=== PATIENT | male | born 1985 | race Caucasian/White ===

== ENCOUNTER 2018-02-23 20:14 | Observation (INO) | payer SELFPAY ==
[2018-02-23] MEDS ORDERED: Sodium Chloride 0.9% 1,000 ML IV ONE ×2 (20:26→22:07)
--- NOTE | 2018-02-23 20:29 | EDM.PDOC ---
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 He denies fever chills nausea vomiting or other complaints. Review of systems: As per history of present illness and below otherwise all systems reviewed and negative. Past medical history: As per history of present illness and as reviewed below otherwise noncontributory. Surgical history: As per history of present illness and as reviewed below otherwise noncontributory. Social history: No reported history of drug or alcohol abuse. Family history: As per history of present illness and as reviewed below otherwise noncontributory. Physical exam: HEENT: Atraumatic, normocephalic, pupils reactive, negative for conjunctival pallor or scleral icterus, mucous membranes moist, throat clear, neck supple, nontender, trachea midline. Lungs: Clear to auscultation, breath sounds equal bilaterally, chest nontender. Heart: S1S2, regular, negative for clicks, rubs, or JVD. Abdomen: Soft, nondistended, nontender. Negative for masses or hepatosplenomegaly. Negative for costovertebral tenderness. Pelvis: Stable nontender. Genitourinary: Deferred. Rectal: Deferred. Extremities: Atraumatic, negative for cords or calf pain. Neurovascular unremarkable. Neuro: Awake, alert, oriented. Cranial nerves II through XII unremarkable. Cerebellum unremarkable. Motor and sensory unremarkable throughout. Exam nonfocal. Diagnostics: CBC CMP CPK Therapeutics: Normal saline 1 L bolus Impression: #1 polymyalgia #2 history of rhabdomyolysis Definitive disposition and diagnosis as appropriate pending reevaluation and review of above. ED ROS GENERAL - Review of Systems Review Of Systems: ROS reveals no pertinent complaints other than HPI. ED EXAM, GENERAL - Physical Exam Exam: See Below (See dictation) Departure - Departure Time of Disposition: 20:28 Disposition: Home, Self-Care 01 Condition: Good Clinical Impression: Polymyalgia - Discharge Information Additional Instructions: The following information is given to patients seen in the emergency department who are being discharged to home. This information is to outline your options for follow-up care. We provide all patients seen in our emergency department with a follow-up referral. The need for follow-up, as well as the timing and circumstances, are variable depending upon the specifics of your emergency department visit. If you don't have a primary care physician on staff, we will provide you with a referral. We always advise you to contact your personal physician following an emergency department visit to inform them of the circumstance of the visit and for follow-up with them and/or the need for any referrals to a consulting specialist. The emergency department will also refer you to a specialist when appropriate. This referral assures that you have the opportunity for followup care with a specialist. All of these measure are taken in an effort to provide you with optimal care, which includes your followup. Under all circumstances we always encourage you to contact your private physician who remains a resource for coordinating your care. When calling for followup care, please make the office aware that this follow-up is from your recent emergency room visit. If for any reason you are refused follow-up, please contact the [facility] emergency department at and asked to speak to the emergency department charge nurse. [facility] [address] [place] [id number] Push fluids follow-up primary medical doctor and/or clinic above return as needed as discussed[]
[2018-02-23 21:41] LABS: CHLORIDE,CL 104 mmol/L (98-107); SODIUM,NA 140 mmol/L (136-148)
[2018-02-24] MEDS ORDERED: Sodium Chloride 0.9% 2.5 ML Syringe FLUSH PRN (01:37)
[2018-02-24] MEDS ORDERED: Sodium Chloride 0.9% 10 ML Syringe FLUSH PRN (01:37)
[2018-02-24] MEDS ORDERED: Enoxaparin 40 MG/0.4 ML Syringe SUBCUT SCH (01:45)
[2018-02-24] MEDS: Sodium Chloride 0.9% 1,000 ML IV SCH ×3 (03:03→22:31)
[2018-02-24 06:44] LABS: CHLORIDE,CL 108 mmol/L (98-107); SODIUM,NA 141 mmol/L (136-148)
--- NOTE | 2018-02-24 09:49 | PCM.HP ---
<Henry Upton - Last Filed: 02/24/18 10:13> H&P History of Present Illness - General Date of Service: 02/24/18 Admit Problem/Dx: Admission Diagnosis/Problem Admission Diagnosis/Problem Rhabdomyolysis Source of Information: Patient History Limitations: Reports: No Limitations - History of Present Illness Initial Comments - Free Text/Narative: 32-year-old male is being admitted with rhabdomyolysis. Patient has a history of intermittent rhabdomyolysis and has been seen at [facility] and many other places with no etiology found for the intermittent rise in his CK. Patient states he's hospitalized 3-4 times a year with rhabdomyolysis and given IV fluids and pain medications. He notes that his CK at times will return to normal levels. He states that he is constantly in pain secondary to muscle cramping. He does not take anything at home for pain relief. Apart from the diffuse muscle pain, the patient denies any other acute concerns at this time including headache, dizziness, chest pain, palpitations, shortness of breath, wheezing, cough, abdominal pain, nausea, vomiting, constipation, diarrhea, peripheral edema, dysuria, hematuria, fever. ER course: Initial CK was 2711. All other laboratory testing was unremarkable. Patient was given an IV fluid bolus 2 in the ER. generalized Pain Score (Numeric/FACES): 5 - Related Data Allergies/Adverse Reactions: Allergies Allergy/AdvReac Type Severity Reaction Status Date / Time cefaclor [From Ceclor] Allergy Hives Verified 02/23/18 20:30 Home Medications: Home Meds . [No Known Home Meds] 02/23/18 [History] Past Medical History HEENT History: Reports: None Cardiovascular History: Reports: None Respiratory History: Reports: None Gastrointestinal History: Reports: None Genitourinary History: Reports: None Musculoskeletal History: Reports: Other (See Below) Other Musculoskeletal History: muscle myopathy Neurological History: Reports: None Psychiatric History: Reports: None Endocrine/Metabolic History: Reports: None Hematologic History: Reports: None Immunologic History: Reports: None Oncologic (Cancer) History: Reports: None Dermatologic History: Reports: None - Infectious Disease History Infectious Disease History: Reports: None - Past Surgical History Head Surgeries/Procedures: Reports: None HEENT Surgical History: Reports: Oral Surgery Social & Family History - Family History Family Medical History: Noncontributory - Tobacco Use Smoking Status *Q: Current Every Day Smoker Years of Tobacco use: 13 Packs/Tins Daily: 1 Used Tobacco, but Quit: Yes Month/Year Tobacco Last Used: February 2018 - Caffeine Use Caffeine Use: Reports: Coffee, Soda - Alcohol Use Date of Last Drink: 02/24/18 Time of Last Drink: 15:00 - Recreational Drug Use Recreational Drug Use: No H&P Review of Systems - Review of Systems: Review Of Systems: See Below General: Reports: No Symptoms HEENT: Reports: No Symptoms Pulmonary: Reports: No Symptoms Cardiovascular: Reports: No Symptoms Gastrointestinal: Reports: No Symptoms Genitourinary: Reports: No Symptoms Musculoskeletal: Reports: Muscle Pain Skin: Reports: No Symptoms Psychiatric: Reports: No Symptoms Neurological: Reports: No Symptoms Hematologic/Lymphatic: Reports: No Symptoms Immunologic: Reports: No Symptoms Exam - Exam Exam: See Below - Vital Signs Vital Signs: Last Vital Signs Temp 98.2 F 02/24/18 07:20 Pulse 81 02/24/18 07:20 Resp 18 02/24/18 07:20 BP 90/68 02/24/18 07:20 Pulse Ox 99 02/24/18 07:20 Weight: 212 lb 8 oz - Exam General: Alert, Oriented, Cooperative HEENT: Conjunctiva Clear, Hearing Intact Neck: Supple, Trachea Midline, 2 Lungs: Clear to Auscultation, Normal Respiratory Effort Cardiovascular: Regular Rate, Regular Rhythm GI/Abdominal Exam: Normal Bowel Sounds, Soft, Non-Tender, No Organomegaly, No Distention, No Abnormal Bruit, No Mass, Pelvis Stable Extremities: Normal Inspection, Normal Range of Motion, Non-Tender, No Pedal Edema, Normal Capillary Refill Peripheral Pulses: 2+: Radial (L), Radial (R), Posterior Tibial (L), Posterior Tibial (R) Skin: Warm, Dry, Intact Neuro Extensive - Mental Status: Alert, Oriented x3, Normal Mood/Affect, Normal Cognition Psychiatric: Alert, Normal Affect, Normal Mood - Patient Data Lab Results Last 24 hrs: Laboratory Results - last 24 hr 02/23/18 02/23/18 02/23/18 Range/Units 20:40 20:53 20:53 WBC 9.83 (4.0-11.0) K/uL RBC 5.04 (4.50-5.90) M/uL Hgb 16.3 (13.0-17.0) g/dL Hct 44.2 (38.0-50.0) % MCV 87.7 (80.0-98.0) fL MCH 32.3 H (27.0-32.0) pg MCHC 36.9 (31.0-37.0) g/dL RDW Std Deviation 41.7 (28.0-62.0) fl RDW Coeff of Anil 13 (11.0-15.0) % Plt Count 346 (150-400) K/uL MPV 9.60 (7.40-12.00) fL Neut % (Auto) 58.2 (48.0-80.0) % Lymph % (Auto) 30.4 (16.0-40.0) % [place] % (Auto) 9.1 (0.0-15.0) % Eos % (Auto) 1.7 (0.0-7.0) % Baso % (Auto) 0.6 (0.0-1.5) % Neut # (Auto) 5.7 (1.4-5.7) K/uL Lymph # (Auto) 3.0 H (0.6-2.4) K/uL [place] # (Auto) 0.9 H (0.0-0.8) K/uL Eos # (Auto) 0.2 (0.0-0.7) K/uL Baso # (Auto) 0.1 (0.0-0.1) K/uL Nucleated RBC % 0.0 /100WBC Nucleated RBCs # 0 K/uL Sodium 140 (136-148) mmol/L Potassium 3.9 (3.5-5.1) mmol/L Chloride 104 (98-107) mmol/L Carbon Dioxide 22.4 (21.0-32.0) mmol/L BUN 10 (7.0-18.0) mg/dL Creatinine 1.1 (0.8-1.3) mg/dL Est Cr Clr Drug Dosing 112.09 mL/min Estimated GFR (MDRD) > 60.0 ml/min Glucose 108 H (74-106) mg/dL Calcium 9.5 (8.5-10.1) mg/dL Phosphorus (2.6-4.7) mg/dL Magnesium (1.5-2.0) mg/dL Total Bilirubin 0.3 (0.2-1.0) mg/dL AST 68 H (15-37) IU/L ALT 56 (14-63) IU/L Alkaline Phosphatase 84 (46-116) U/L Creatine Kinase 2711 H (26-308) U/L Total Protein 8.0 (6.4-8.2) g/dL Albumin 4.3 (3.4-5.0) g/dL Globulin 3.7 H (2.0-3.5) g/dL Albumin/Globulin Ratio 1.2 L (1.3-2.8) Urine Color YELLOW Urine Appearance CLEAR Urine pH 5.0 (5.0-8.0) Ur Specific [place] <= 1.005 (1.001-1.035) Urine Protein NEGATIVE (NEGATIVE) mg/dL Urine Glucose (UA) NEGATIVE (NEGATIVE) mg/dL Urine Ketones NEGATIVE (NEGATIVE) mg/dL Urine Occult Blood NEGATIVE (NEGATIVE) Urine Nitrite NEGATIVE (NEGATIVE) Urine Bilirubin NEGATIVE (NEGATIVE) Urine Urobilinogen 0.2 (<2.0) EU/dL Ur Leukocyte Esterase NEGATIVE (NEGATIVE) Urine RBC 0-1 (0-2/HPF) Urine WBC 0-1 (0-5/HPF) Ur Epithelial Cells RARE (NONE-FEW) Urine Bacteria RARE (NEGATIVE) 02/23/18 02/24/18 02/24/18 Range/Units 20:53 05:05 05:05 WBC 6.60 (4.0-11.0) K/uL RBC 4.52 (4.50-5.90) M/uL Hgb 14.3 (13.0-17.0) g/dL Hct 40.0 (38.0-50.0) % MCV 88.5 (80.0-98.0) fL MCH 31.6 (27.0-32.0) pg MCHC 35.8 (31.0-37.0) g/dL RDW Std Deviation 41.8 (28.0-62.0) fl RDW Coeff of Anil 13 (11.0-15.0) % Plt Count 290 (150-400) K/uL MPV 9.80 (7.40-12.00) fL Neut % (Auto) 45.3 L (48.0-80.0) % Lymph % (Auto) 41.1 H (16.0-40.0) % [place] % (Auto) 9.7 (0.0-15.0) % Eos % (Auto) 3.3 (0.0-7.0) % Baso % (Auto) 0.6 (0.0-1.5) % Neut # (Auto) 3.0 (1.4-5.7) K/uL Lymph # (Auto) 2.7 H (0.6-2.4) K/uL [place] # (Auto) 0.6 (0.0-0.8) K/uL Eos # (Auto) 0.2 (0.0-0.7) K/uL Baso # (Auto) 0.0 (0.0-0.1) K/uL Nucleated RBC % 0.0 /100WBC Nucleated RBCs # 0 K/uL Sodium 141 (136-148) mmol/L Potassium 4.1 (3.5-5.1) mmol/L Chloride 108 H (98-107) mmol/L Carbon Dioxide 27.2 (21.0-32.0) mmol/L BUN 9 (7.0-18.0) mg/dL Creatinine 1.1 (0.8-1.3) mg/dL Est Cr Clr Drug Dosing 112.09 mL/min Estimated GFR (MDRD) > 60.0 ml/min Glucose 110 H (74-106) mg/dL Calcium 8.6 (8.5-10.1) mg/dL Phosphorus 3.7 3.6 (2.6-4.7) mg/dL Magnesium 1.6 1.5 (1.5-2.0) mg/dL Total Bilirubin 0.2 (0.2-1.0) mg/dL AST 55 H (15-37) IU/L ALT 46 (14-63) IU/L Alkaline Phosphatase 74 (46-116) U/L Creatine Kinase (26-308) U/L Total Protein 6.3 L (6.4-8.2) g/dL Albumin 3.3 L (3.4-5.0) g/dL Globulin 3.0 (2.0-3.5) g/dL Albumin/Globulin Ratio 1.1 L (1.3-2.8) Urine Color Urine Appearance Urine pH (5.0-8.0) Ur Specific [place] (1.001-1.035) Urine Protein (NEGATIVE) mg/dL Urine Glucose (UA) (NEGATIVE) mg/dL Urine Ketones (NEGATIVE) mg/dL Urine Occult Blood (NEGATIVE) Urine Nitrite (NEGATIVE) Urine Bilirubin (NEGATIVE) Urine Urobilinogen (<2.0) EU/dL Ur Leukocyte Esterase (NEGATIVE) Urine RBC (0-2/HPF) Urine WBC (0-5/HPF) Ur Epithelial Cells (NONE-FEW) Urine Bacteria (NEGATIVE) 02/24/18 Range/Units 05:05 WBC (4.0-11.0) K/uL RBC (4.50-5.90) M/uL Hgb (13.0-17.0) g/dL Hct (38.0-50.0) % MCV (80.0-98.0) fL MCH (27.0-32.0) pg MCHC (31.0-37.0) g/dL RDW Std Deviation (28.0-62.0) fl RDW Coeff of Anil (11.0-15.0) % Plt Count (150-400) K/uL MPV (7.40-12.00) fL Neut % (Auto) (48.0-80.0) % Lymph % (Auto) (16.0-40.0) % [place] % (Auto) (0.0-15.0) % Eos % (Auto) (0.0-7.0) % Baso % (Auto) (0.0-1.5) % Neut # (Auto) (1.4-5.7) K/uL Lymph # (Auto) (0.6-2.4) K/uL [place] # (Auto) (0.0-0.8) K/uL Eos # (Auto) (0.0-0.7) K/uL Baso # (Auto) (0.0-0.1) K/uL Nucleated RBC % /100WBC Nucleated RBCs # K/uL Sodium (136-148) mmol/L Potassium (3.5-5.1) mmol/L Chloride (98-107) mmol/L Carbon Dioxide (21.0-32.0) mmol/L BUN (7.0-18.0) mg/dL Creatinine (0.8-1.3) mg/dL Est Cr Clr Drug Dosing mL/min Estimated GFR (MDRD) ml/min Glucose (74-106) mg/dL Calcium (8.5-10.1) mg/dL Phosphorus (2.6-4.7) mg/dL Magnesium (1.5-2.0) mg/dL Total Bilirubin (0.2-1.0) mg/dL AST (15-37) IU/L ALT (14-63) IU/L Alkaline Phosphatase (46-116) U/L Creatine Kinase 1831 H (26-308) U/L Total Protein (6.4-8.2) g/dL Albumin (3.4-5.0) g/dL Globulin (2.0-3.5) g/dL Albumin/Globulin Ratio (1.3-2.8) Urine Color Urine Appearance Urine pH (5.0-8.0) Ur Specific [place] (1.001-1.035) Urine Protein (NEGATIVE) mg/dL Urine Glucose (UA) (NEGATIVE) mg/dL Urine Ketones (NEGATIVE) mg/dL Urine Occult Blood (NEGATIVE) Urine Nitrite (NEGATIVE) Urine Bilirubin (NEGATIVE) Urine Urobilinogen (<2.0) EU/dL Ur Leukocyte Esterase (NEGATIVE) Urine RBC (0-2/HPF) Urine WBC (0-5/HPF) Ur Epithelial Cells (NONE-FEW) Urine Bacteria (NEGATIVE) Result Diagrams: 02/24/18 05:05 02/24/18 05:05 - Problem List (1) Rhabdomyolysis SNOMED Code(s): 790973602 ICD Code: M62.82 - RHABDOMYOLYSIS Status: Acute Current Visit: Yes Problem List Initiated/Reviewed/Updated: Yes Orders Last 24hrs: Active Orders 24 hr Category Date Time Status Patient Status [ADT] Routine ADT 02/24/18 01:37 Active Patient Status [ADT] Stat ADT 02/23/18 22:57 Active Intake and Output [RC] QSHIFT Care 02/24/18 01:39 Active Oxygen Therapy [RC] PRN Care 02/24/18 01:37 Active Pulse Oximetry [RC] PRN Care 02/24/18 01:39 Active Telemetry Monitoring [Cardiac Monitoring] [RC] . Care 02/24/18 05:48 Active DIRECTED Up ad Concha [RC] ASDIRECTED Care 02/24/18 01:37 Active VTE/DVT Education [RC] PER UNIT ROUTINE Care 02/24/18 01:37 Active Vital Signs [RC] Q4H Care 02/24/18 01:37 Active Regular Diet [DIET] Diet 02/24/18 Breakfast Active CBC WITH AUTO DIFF [HEME] AM Lab 02/25/18 05:11 Ordered CBC WITH AUTO DIFF [HEME] AM Lab 02/26/18 05:11 Ordered COMPREHENSIVE METABOLIC PN,CMP [CHEM] AM Lab 02/25/18 05:11 Ordered COMPREHENSIVE METABOLIC PN,CMP [CHEM] AM Lab 02/26/18 05:11 Ordered MAGNESIUM [CHEM] AM Lab 02/25/18 05:11 Ordered PHOSPHORUS [CHEM] AM Lab 02/25/18 05:11 Ordered UA W/MICROSCOPIC [URIN] Stat Lab 02/23/18 20:40 Ordered Enoxaparin [Lovenox] Med 02/24/18 01:45 Active 40 mg SUBCUT Q24H Sodium Chloride 0.9% [Normal Saline] 1,000 ml Med 02/24/18 02:45 Active IV ASDIRECTED Sodium Chloride 0.9% [Saline Flush] Med 02/24/18 01:37 Active 10 ml FLUSH ASDIRECTED PRN Sodium Chloride 0.9% [Saline Flush] Med 02/24/18 01:37 Active 2.5 ml FLUSH ASDIRECTED PRN Saline Lock Insert [OM.PC] Routine Oth 02/24/18 01:37 Ordered Resuscitation Status Routine Resus Stat 02/24/18 01:37 Ordered Medication Orders Enoxaparin Sodium (Lovenox) 40 mg SUBCUT Q24H [facility] Last Admin: 02/24/18 02:33 Dose: Not Given Sodium Chloride (Normal Saline) 1,000 mls @ 100 mls/hr IV ASDIRECTED LORRIE Last Admin: 02/24/18 03:03 Dose: 100 mls/hr Sodium Chloride (Saline Flush) 10 ml FLUSH ASDIRECTED PRN PRN Reason: Keep Vein Open Sodium Chloride (Saline Flush) 2.5 ml FLUSH ASDIRECTED PRN PRN Reason: Keep Vein Open Assessment/Plan Comment:: 32-year-old male admitted with rhabdomyolysis. #1. Rhabdomyolysis: -Continue with IV fluids. Repeat CK this morning was 1831 (previously 2700). Patient reports mild improvement in muscle cramping. DVT prophylaxis: SCDs and Lovenox Disposition: 2-4 days pending improvement <Diana Boone - Last Filed: 02/24/18 12:51> H&P History of Present Illness - General Admit Problem/Dx: Admission Diagnosis/Problem Admission Diagnosis/Problem Rhabdomyolysis Exam - Vital Signs Vital Signs: Last Vital Signs Temp 98.2 F 02/24/18 07:20 Pulse 81 02/24/18 07:20 Resp 18 02/24/18 07:20 BP 90/68 02/24/18 07:20 Pulse Ox 99 02/24/18 07:20 - Patient Data Lab Results Last 24 hrs: Laboratory Results - last 24 hr 02/23/18 02/23/18 02/23/18 Range/Units 20:40 20:53 20:53 WBC 9.83 (4.0-11.0) K/uL RBC 5.04 (4.50-5.90) M/uL Hgb 16.3 (13.0-17.0) g/dL Hct 44.2 (38.0-50.0) % MCV 87.7 (80.0-98.0) fL MCH 32.3 H (27.0-32.0) pg MCHC 36.9 (31.0-37.0) g/dL RDW Std Deviation 41.7 (28.0-62.0) fl RDW Coeff of Anil 13 (11.0-15.0) % Plt Count 346 (150-400) K/uL MPV 9.60 (7.40-12.00) fL Neut % (Auto) 58.2 (48.0-80.0) % Lymph % (Auto) 30.4 (16.0-40.0) % [place] % (Auto) 9.1 (0.0-15.0) % Eos % (Auto) 1.7 (0.0-7.0) % Baso % (Auto) 0.6 (0.0-1.5) % Neut # (Auto) 5.7 (1.4-5.7) K/uL Lymph # (Auto) 3.0 H (0.6-2.4) K/uL [place] # (Auto) 0.9 H (0.0-0.8) K/uL Eos # (Auto) 0.2 (0.0-0.7) K/uL Baso # (Auto) 0.1 (0.0-0.1) K/uL Nucleated RBC % 0.0 /100WBC Nucleated RBCs # 0 K/uL Sodium 140 (136-148) mmol/L Potassium 3.9 (3.5-5.1) mmol/L Chloride 104 (98-107) mmol/L Carbon Dioxide 22.4 (21.0-32.0) mmol/L BUN 10 (7.0-18.0) mg/dL Creatinine 1.1 (0.8-1.3) mg/dL Est Cr Clr Drug Dosing 112.09 mL/min Estimated GFR (MDRD) > 60.0 ml/min Glucose 108 H (74-106) mg/dL Calcium 9.5 (8.5-10.1) mg/dL Phosphorus (2.6-4.7) mg/dL Magnesium (1.5-2.0) mg/dL Total Bilirubin 0.3 (0.2-1.0) mg/dL AST 68 H (15-37) IU/L ALT 56 (14-63) IU/L Alkaline Phosphatase 84 (46-116) U/L Creatine Kinase 2711 H (26-308) U/L Total Protein 8.0 (6.4-8.2) g/dL Albumin 4.3 (3.4-5.0) g/dL Globulin 3.7 H (2.0-3.5) g/dL Albumin/Globulin Ratio 1.2 L (1.3-2.8) Urine Color YELLOW Urine Appearance CLEAR Urine pH 5.0 (5.0-8.0) Ur Specific [place] <= 1.005 (1.001-1.035) Urine Protein NEGATIVE (NEGATIVE) mg/dL Urine Glucose (UA) NEGATIVE (NEGATIVE) mg/dL Urine Ketones NEGATIVE (NEGATIVE) mg/dL Urine Occult Blood NEGATIVE (NEGATIVE) Urine Nitrite NEGATIVE (NEGATIVE) Urine Bilirubin NEGATIVE (NEGATIVE) Urine Urobilinogen 0.2 (<2.0) EU/dL Ur Leukocyte Esterase NEGATIVE (NEGATIVE) Urine RBC 0-1 (0-2/HPF) Urine WBC 0-1 (0-5/HPF) Ur Epithelial Cells RARE (NONE-FEW) Urine Bacteria RARE (NEGATIVE) 02/23/18 02/24/1818 Range/Units 20:53 05:05 05:05 WBC 6.60 (4.0-11.0) K/uL RBC 4.52 (4.50-5.90) M/uL Hgb 14.3 (13.0-17.0) g/dL Hct 40.0 (38.0-50.0) % MCV 88.5 (80.0-98.0) fL MCH 31.6 (27.0-32.0) pg MCHC 35.8 (31.0-37.0) g/dL RDW Std Deviation 41.8 (28.0-62.0) fl RDW Coeff of Anil 13 (11.0-15.0) % Plt Count 290 (150-400) K/uL MPV 9.80 (7.40-12.00) fL Neut % (Auto) 45.3 L (48.0-80.0) % Lymph % (Auto) 41.1 H (16.0-40.0) % [place] % (Auto) 9.7 (0.0-15.0) % Eos % (Auto) 3.3 (0.0-7.0) % Baso % (Auto) 0.6 (0.0-1.5) % Neut # (Auto) 3.0 (1.4-5.7) K/uL Lymph # (Auto) 2.7 H (0.6-2.4) K/uL [place] # (Auto) 0.6 (0.0-0.8) K/uL Eos # (Auto) 0.2 (0.0-0.7) K/uL Baso # (Auto) 0.0 (0.0-0.1) K/uL Nucleated RBC % 0.0 /100WBC Nucleated RBCs # 0 K/uL Sodium 141 (136-148) mmol/L Potassium 4.1 (3.5-5.1) mmol/L Chloride 108 H (98-107) mmol/L Carbon Dioxide 27.2 (21.0-32.0) mmol/L BUN 9 (7.0-18.0) mg/dL Creatinine 1.1 (0.8-1.3) mg/dL Est Cr Clr Drug Dosing 112.09 mL/min Estimated GFR (MDRD) > 60.0 ml/min Glucose 110 H (74-106) mg/dL Calcium 8.6 (8.5-10.1) mg/dL Phosphorus 3.7 3.6 (2.6-4.7) mg/dL Magnesium 1.6 1.5 (1.5-2.0) mg/dL Total Bilirubin 0.2 (0.2-1.0) mg/dL AST 55 H (15-37) IU/L ALT 46 (14-63) IU/L Alkaline Phosphatase 74 (46-116) U/L Creatine Kinase (26-308) U/L Total Protein 6.3 L (6.4-8.2) g/dL Albumin 3.3 L (3.4-5.0) g/dL Globulin 3.0 (2.0-3.5) g/dL Albumin/Globulin Ratio 1.1 L (1.3-2.8) Urine Color Urine Appearance Urine pH (5.0-8.0) Ur Specific [place] (1.001-1.035) Urine Protein (NEGATIVE) mg/dL Urine Glucose (UA) (NEGATIVE) mg/dL Urine Ketones (NEGATIVE) mg/dL Urine Occult Blood (NEGATIVE) Urine Nitrite (NEGATIVE) Urine Bilirubin (NEGATIVE) Urine Urobilinogen (<2.0) EU/dL Ur Leukocyte Esterase (NEGATIVE) Urine RBC (0-2/HPF) Urine WBC (0-5/HPF) Ur Epithelial Cells (NONE-FEW) Urine Bacteria (NEGATIVE) 02/24/18 Range/Units 05:05 WBC (4.0-11.0) K/uL RBC (4.50-5.90) M/uL Hgb (13.0-17.0) g/dL Hct (38.0-50.0) % MCV (80.0-98.0) fL MCH (27.0-32.0) pg MCHC (31.0-37.0) g/dL RDW Std Deviation (28.0-62.0) fl RDW Coeff of Anil (11.0-15.0) % Plt Count (150-400) K/uL MPV (7.40-12.00) fL Neut % (Auto) (48.0-80.0) % Lymph % (Auto) (16.0-40.0) % [place] % (Auto) (0.0-15.0) % Eos % (Auto) (0.0-7.0) % Baso % (Auto) (0.0-1.5) % Neut # (Auto) (1.4-5.7) K/uL Lymph # (Auto) (0.6-2.4) K/uL [place] # (Auto) (0.0-0.8) K/uL Eos # (Auto) (0.0-0.7) K/uL Baso # (Auto) (0.0-0.1) K/uL Nucleated RBC % /100WBC Nucleated RBCs # K/uL Sodium (136-148) mmol/L Potassium (3.5-5.1) mmol/L Chloride (98-107) mmol/L Carbon Dioxide (21.0-32.0) mmol/L BUN (7.0-18.0) mg/dL Creatinine (0.8-1.3) mg/dL Est Cr Clr Drug Dosing mL/min Estimated GFR (MDRD) ml/min Glucose (74-106) mg/dL Calcium (8.5-10.1) mg/dL Phosphorus (2.6-4.7) mg/dL Magnesium (1.5-2.0) mg/dL Total Bilirubin (0.2-1.0) mg/dL AST (15-37) IU/L ALT (14-63) IU/L Alkaline Phosphatase (46-116) U/L Creatine Kinase 1831 H (26-308) U/L Total Protein (6.4-8.2) g/dL Albumin (3.4-5.0) g/dL Globulin (2.0-3.5) g/dL Albumin/Globulin Ratio (1.3-2.8) Urine Color Urine Appearance Urine pH (5.0-8.0) Ur Specific [place] (1.001-1.035) Urine Protein (NEGATIVE) mg/dL Urine Glucose (UA) (NEGATIVE) mg/dL Urine Ketones (NEGATIVE) mg/dL Urine Occult Blood (NEGATIVE) Urine Nitrite (NEGATIVE) Urine Bilirubin (NEGATIVE) Urine Urobilinogen (<2.0) EU/dL Ur Leukocyte Esterase (NEGATIVE) Urine RBC (0-2/HPF) Urine WBC (0-5/HPF) Ur Epithelial Cells (NONE-FEW) Urine Bacteria (NEGATIVE) Result Diagrams: 02/24/18 05:05 02/24/18 05:05 - Problem List (1) Rhabdomyolysis SNOMED Code(s): 862424796 ICD Code: M62.82 - RHABDOMYOLYSIS Status: Acute Current Visit: Yes Orders Last 24hrs: Active Orders 24 hr Category Date Time Status Patient Status [ADT] Routine ADT 02/24/18 01:37 Active Patient Status [ADT] Stat ADT 02/23/18 22:57 Active Intake and Output [RC] QSHIFT Care 02/24/18 01:39 Active Oxygen Therapy [RC] PRN Care 02/24/18 01:37 Active Pulse Oximetry [RC] PRN Care 02/24/18 01:39 Active Telemetry Monitoring [Cardiac Monitoring] [RC] . Care 02/24/18 05:48 Active DIRECTED Up ad Concha [RC] ASDIRECTED Care 02/24/18 01:37 Active VTE/DVT Education [RC] PER UNIT ROUTINE Care 02/24/18 01:37 Active Vital Signs [RC] Q4H Care 02/24/18 01:37 Active Regular Diet [DIET] Diet 02/24/18 Breakfast Active CBC WITH AUTO DIFF [HEME] AM Lab 02/25/18 05:11 Ordered CBC WITH AUTO DIFF [HEME] AM Lab 02/26/18 05:11 Ordered COMPREHENSIVE METABOLIC PN,CMP [CHEM] AM Lab 02/25/18 05:11 Ordered COMPREHENSIVE METABOLIC PN,CMP [CHEM] AM Lab 02/26/18 05:11 Ordered MAGNESIUM [CHEM] AM Lab 02/25/18 05:11 Ordered PHOSPHORUS [CHEM] AM Lab 02/25/18 05:11 Ordered UA W/MICROSCOPIC [URIN] Stat Lab 02/23/18 20:40 Ordered Enoxaparin [Lovenox] Med 02/24/18 01:45 Active 40 mg SUBCUT Q24H Morphine Med 02/24/18 12:07 Active 4 mg IVPUSH Q4H PRN Sodium Chloride 0.9% [Normal Saline] 1,000 ml Med 02/24/18 02:45 Active IV ASDIRECTED Sodium Chloride 0.9% [Saline Flush] Med 02/24/18 01:37 Active 10 ml FLUSH ASDIRECTED PRN Sodium Chloride 0.9% [Saline Flush] Med 02/24/18 01:37 Active 2.5 ml FLUSH ASDIRECTED PRN Saline Lock Insert [OM.PC] Routine Oth 02/24/18 01:37 Ordered Resuscitation Status Routine Resus Stat 02/24/18 01:37 Ordered Medication Orders Enoxaparin Sodium (Lovenox) 40 mg SUBCUT Q24H [facility] Last Admin: 02/24/18 02:33 Dose: Not Given Sodium Chloride (Normal Saline) 1,000 mls @ 200 mls/hr IV ASDIRECTED [facility] Last Admin: 02/24/18 12:23 Dose: 200 mls/hr Infusion: 02/24/18 12:23 Dose: 100 mls/hr Admin: 02/24/18 03:03 Dose: 100 mls/hr Morphine Sulfate (Morphine) 4 mg IVPUSH Q4H PRN PRN Reason: Pain Last Admin: 02/24/18 12:27 Dose: 4 mg Sodium Chloride (Saline Flush) 10 ml FLUSH ASDIRECTED PRN PRN Reason: Keep Vein Open Sodium Chloride (Saline Flush) 2.5 ml FLUSH ASDIRECTED PRN PRN Reason: Keep Vein Open Assessment/Plan Comment:: Patient seen and examined. 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 He gets muscle breakdown about 3-4 times a year when he needs hospitalization. Patient was instructed to not drink alcohol as alcohol itself can cause rhabdomiolysis . Will give patient morphine 4 mg iv q 4 h prn for pain, will monitor creatinine , electrolytes and will monitor K level for raise in the level , for the development of other metabolic abnormalities including hypocalcemia, hyperphosphatemia, and hyperuricemia Patient discussed with resident , agree with assessment and plan.
[2018-02-24] MEDS: Morphine 4 MG/ML Syringe IVPUSH PRN ×3 (12:27→21:25)
[2018-02-24] MEDS ORDERED: methylPREDNISolone Sodium Succinate 40 MG/1 ML SDV IVPUSH SCH (19:00)
[2018-02-24] MEDS ORDERED: Albuterol/Ipratropium 3.0-0.5 MG/3 ML Neb Soln NEB PRN (19:03)
[2018-02-24] MEDS ORDERED: Fluticasone/Salmeterol 250-50 MCG Inhalation Powder 14/Diskus INH ONE (19:07)
[2018-02-24] MEDS ORDERED: Famotidine 20 MG Tab PO SCH (19:15)
[2018-02-25] MEDS: Morphine 4 MG/ML Syringe IVPUSH PRN ×4 (02:05→17:27)
[2018-02-25] MEDS: Sodium Chloride 0.9% 1,000 ML IV SCH ×4 (03:46→19:54)
[2018-02-25 06:26] LABS: CHLORIDE,CL 110 mmol/L (98-107); SODIUM,NA 140 mmol/L (136-148)
[2018-02-25] MEDS ORDERED: Magnesium Sulfate/Water 2 GM in Premix Bag 1 BAG IV ONE (08:07)
[2018-02-25] MEDS: Fluticasone/Salmeterol 100-50 MCG Inhalation Powder 14/Diskus INH SCH ×2 (10:33→21:14)
--- NOTE | 2018-02-25 11:29 | PCM.PN ---
- General Info Date of Service: 02/25/18 Admission Dx/Problem (Free Text): doing better , decreased pain , his cpk decreased to 740 in am. - Review of Systems General: Reports: No Symptoms HEENT: Reports: No Symptoms Pulmonary: Reports: No Symptoms Cardiovascular: Reports: No Symptoms Gastrointestinal: Reports: No Symptoms Genitourinary: Reports: No Symptoms Musculoskeletal: Reports: Other (diffuse ,muscle pain) Skin: Reports: No Symptoms Neurological: Reports: No Symptoms Psychiatric: Reports: No Symptoms - Patient Data Vitals - Most Recent: Last Vital Signs Temp 97.6 F 02/25/18 07:41 Pulse 65 02/25/18 07:41 Resp 12 02/25/18 07:41 BP 116/71 02/25/18 07:41 Pulse Ox 96 02/25/18 07:41 Weight - Most Recent: 212 lb 8 oz I&O - Last 24 Hours: Intake & Output 02/24/18 02/25/18 02/25/18 22:59 06:59 14:59 Intake Total 3034 3105 Output Total 1850 1800 Balance 1184 1305 Lab Results Last 24 Hours: Laboratory Results - last 24 hr 02/25/18 02/25/18 Range/Units 05:42 05:42 WBC 8.48 (4.0-11.0) K/uL RBC 4.45 L (4.50-5.90) M/uL Hgb 13.9 (13.0-17.0) g/dL Hct 40.0 (38.0-50.0) % MCV 89.9 (80.0-98.0) fL MCH 31.2 (27.0-32.0) pg MCHC 34.8 (31.0-37.0) g/dL RDW Std Deviation 42.9 (28.0-62.0) fl RDW Coeff of Anil 13 (11.0-15.0) % Plt Count 268 (150-400) K/uL MPV 9.90 (7.40-12.00) fL Add Manual Diff YES Neutrophils % (Manual) 52 (48.0-80.0) % Band Neutrophils % 1 % Lymphocytes % (Manual) 35 (16.0-40.0) % Monocytes % (Manual) 5 (0.0-15.0) % Eosinophils % (Manual) 6 (0.0-7.0) % Basophils % (Manual) 1 (0.0-1.5) % Nucleated RBC % 0.0 /100WBC Absolute Seg Neuts 4.4 (1.4-5.7) Band Neutrophils # 0.1 Lymphocytes # (Manual) 3.0 H (0.6-2.4) Monocytes # (Manual) 0.4 (0.0-0.8) Eosinophils # (Manual) 0.5 (0.0-0.7) Basophils # (Manual) 0.1 (0.0-0.1) Nucleated RBCs # 0 K/uL Sodium 140 (136-148) mmol/L Potassium 4.1 (3.5-5.1) mmol/L Chloride 110 H (98-107) mmol/L Carbon Dioxide 28.2 (21.0-32.0) mmol/L BUN 9 (7.0-18.0) mg/dL Creatinine 1.0 (0.8-1.3) mg/dL Est Cr Clr Drug Dosing 123.30 mL/min Estimated GFR (MDRD) > 60.0 ml/min Glucose 103 (74-106) mg/dL Calcium 8.5 (8.5-10.1) mg/dL Phosphorus 4.4 (2.6-4.7) mg/dL Magnesium 1.4 L (1.5-2.0) mg/dL Total Bilirubin 0.1 L (0.2-1.0) mg/dL AST 35 (15-37) IU/L ALT 42 (14-63) IU/L Alkaline Phosphatase 71 (46-116) U/L Creatine Kinase 745 H (26-308) U/L Total Protein 5.8 L (6.4-8.2) g/dL Albumin 3.0 L (3.4-5.0) g/dL Globulin 2.8 (2.0-3.5) g/dL Albumin/Globulin Ratio 1.1 L (1.3-2.8) Med Orders - Current: Current Medications Sodium Chloride (Normal Saline) 1,000 mls @ 200 mls/hr IV ASDIRECTED [facility] Last Admin: 02/25/18 08:31 Dose: 200 mls/hr Morphine Sulfate (Morphine) 4 mg IVPUSH Q4H PRN PRN Reason: Pain Last Admin: 02/25/18 08:15 Dose: 4 mg Fluticasone/Salmeterol (Advair Diskus 100-50) 1 puff INH BID [facility] Last Admin: 02/25/18 10:33 Dose: 1 disk Sodium Chloride (Saline Flush) 10 ml FLUSH ASDIRECTED PRN PRN Reason: Keep Vein Open Sodium Chloride (Saline Flush) 2.5 ml FLUSH ASDIRECTED PRN PRN Reason: Keep Vein Open Discontinued Medications Albuterol/Ipratropium (Duoneb 3.0-0.5 Mg/3 Ml) 3 ml NEB Q4HRRT PRN PRN Reason: sob Enoxaparin Sodium (Lovenox) 40 mg SUBCUT Q24H [facility] Last Admin: 02/24/18 02:33 Dose: Not Given Famotidine (Pepcid) 20 mg PO DAILY [facility] Sodium Chloride (Normal Saline) 1,000 mls @ 999 mls/hr IV .Bolus ONE Stop: 02/23/18 21:26 Last Admin: 02/23/18 20:54 Dose: 999 mls/hr Sodium Chloride (Normal Saline) 1,000 mls @ 999 mls/hr IV .Bolus ONE Stop: 02/23/18 23:07 Last Admin: 02/23/18 22:18 Dose: 999 mls/hr Magnesium Sulfate 2 gm/ Premix 50 mls @ 50 mls/hr IV ONETIME ONE Stop: 02/25/18 09:06 Last Admin: 02/25/18 08:28 Dose: 50 mls/hr Methylprednisolone Sodium Succinate (Solu-Medrol) 40 mg IVPUSH Q6H [facility] Last Admin: 02/24/18 20:31 Dose: Not Given Minocycline HCl (Minocin) 50 mg PO BID [facility] Fluticasone/Salmeterol (Advair Diskus 250-50) 1 puff INH ONETIME ONE Stop: 02/24/18 19:08 Last Admin: 02/24/18 20:32 Dose: Not Given - Exam General: Alert, Oriented HEENT: Pupils Equal Neck: Supple Lungs: Clear to Auscultation GI/Abdominal Exam: Normal Bowel Sounds Back Exam: Normal Inspection Extremities: Normal Inspection Skin: Warm, Dry Neurological: No New Focal Deficit Psy/Mental Status: Alert, Normal Affect, Normal Mood - Problem List & Annotations (1) Rhabdomyolysis SNOMED Code(s): 255029079 Code(s): M62.82 - RHABDOMYOLYSIS Status: Acute Current Visit: Yes (2) Unspecified myopathy SNOMED Code(s): 56029688 Code(s): G72.9 - MYOPATHY, UNSPECIFIED Status: Acute Current Visit: Yes - Problem List Review Problem List Initiated/Reviewed/Updated: Yes - My Orders Last 24 Hours: My Active Orders 02/24/18 12:07 Morphine 4 mg IVPUSH Q4H PRN 02/24/18 19:04 RT Aerosol Therapy [RC] ASDIRECTED 02/24/18 19:07 RT Post Treatment Assessment [RC] Click to Edit RT Pre-Treatment Assessment [RC] Click to Edit 02/25/18 09:00 Fluticasone/Salmeterol [Advair Diskus 100-50] 1 puff INH BID 02/26/18 05:11 CBC WITH AUTO DIFF [HEME] AM COMPREHENSIVE METABOLIC PN,CMP [CHEM] AM - Plan Plan:: assessment and plan 1)rhabdomyolysis due to unspecified myopathy , will continue iv fluids , will repeat cpk in the evening , will d/c patient home later on today , to continue iv hydration at home.
[2018-02-25] MEDS ORDERED: guaiFENesin 100 MG/5 ML Soln 10 ML UD Cup PO PRN (12:44)
[2018-02-25] MEDS ORDERED: Acetaminophen/oxyCODONE 325-5 MG Tab PO PRN (19:43)
[2018-02-25] MEDS ORDERED: Acetaminophen/HYDROcodone 325-5 MG Tab PO PRN (22:23)
[2018-02-25] MEDS ORDERED: diphenhydrAMINE 50 MG/ML SDV IVPUSH PRN (22:25)
[2018-02-26] MEDS: Sodium Chloride 0.9% 1,000 ML IV SCH ×2 (01:00→06:33)
[2018-02-26 06:34] LABS: CHLORIDE,CL 111 mmol/L (98-107); SODIUM,NA 142 mmol/L (136-148)
[2018-02-26] MEDS: Fluticasone/Salmeterol 100-50 MCG Inhalation Powder 14/Diskus INH SCH (08:37)
--- NOTE | 2018-02-26 08:43 | PCM.DCSUM1 ---
Discharge Summary - Hospital Course HPI Initial Comments: Patient admitted in the hospital with muscle pain and increased CPK to 2800 , he was treated with iv fluids and pain medication. He has myopathy and start having rhabdomyolisis at age 14. his CPK decreased today to 430 and patient is stable for discharge. No pain medication were given upon discharge as patient refused. - Discharge Data Discharge Date: 02/26/18 Discharge Disposition: Home, Self-Care 01 Condition: Fair - Discharge Diagnosis/Problem(s) (1) Rhabdomyolysis SNOMED Code(s): 099329753 ICD Code: M62.82 - RHABDOMYOLYSIS Status: Acute (2) Unspecified myopathy SNOMED Code(s): 74994788 ICD Code: G72.9 - MYOPATHY, UNSPECIFIED Status: Acute - Patient Instructions Diet: Usual Diet as Tolerated Activity: As Tolerated Driving: May Drive Today - Discharge Plan Prescriptions/Med Rec: Acetaminophen [Tylenol] 650 mg PO Q4H PRN #60 tab PRN Reason: Pain Home Medications: Home Meds Acetaminophen [Tylenol] 650 mg PO Q4H PRN #60 tab 02/26/18 [Rx] Patient Handouts: Rhabdomyolysis Referrals: Zain Ho MD [Resident] - 03/09/18 2:30 pm - Discharge Summary/Plan Comment DC Time >30 min.: Yes - General Info Date of Service: 02/26/18 - Review of Systems General: Reports: No Symptoms HEENT: Reports: No Symptoms Pulmonary: Reports: No Symptoms Cardiovascular: Reports: No Symptoms, Orthopnea Genitourinary: Reports: No Symptoms Musculoskeletal: Reports: No Symptoms Skin: Reports: No Symptoms Neurological: Reports: No Symptoms Psychiatric: Reports: No Symptoms - Patient Data Vitals - Most Recent: Last Vital Signs Temp 98 F 02/26/18 04:00 Pulse 62 02/26/18 04:00 Resp 20 02/26/18 04:00 BP 124/64 02/26/18 04:00 Pulse Ox 95 02/26/18 04:00 Weight - Most Recent: 212 lb 8 oz I&O - Last 24 hours: Intake & Output 02/25/18 02/26/18 02/26/18 22:59 06:59 14:59 Intake Total 3561 2500 Output Total 3000 2800 Balance 561 -300 Lab Results - Last 24 hrs: Laboratory Results - last 24 hr 02/25/18 02/26/18 02/26/18 Range/Units 18:05 05:35 05:35 WBC 5.97 (4.0-11.0) K/uL RBC 4.26 L (4.50-5.90) M/uL Hgb 13.6 (13.0-17.0) g/dL Hct 38.1 (38.0-50.0) % MCV 89.4 (80.0-98.0) fL MCH 31.9 (27.0-32.0) pg MCHC 35.7 (31.0-37.0) g/dL RDW Std Deviation 42.3 (28.0-62.0) fl RDW Coeff of Anil 13 (11.0-15.0) % Plt Count 264 (150-400) K/uL MPV 9.70 (7.40-12.00) fL Add Manual Diff YES Neutrophils % (Manual) 46 L (48.0-80.0) % Band Neutrophils % 2 % Lymphocytes % (Manual) 42 H (16.0-40.0) % Monocytes % (Manual) 7 (0.0-15.0) % Eosinophils % (Manual) 2 (0.0-7.0) % Basophils % (Manual) 1 (0.0-1.5) % Nucleated RBC % 0.0 /100WBC Absolute Seg Neuts 2.7 (1.4-5.7) Band Neutrophils # 0.1 Lymphocytes # (Manual) 2.5 H (0.6-2.4) Monocytes # (Manual) 0.4 (0.0-0.8) Eosinophils # (Manual) 0.1 (0.0-0.7) Basophils # (Manual) 0.1 (0.0-0.1) Nucleated RBCs # 0 K/uL Sodium 142 (136-148) mmol/L Potassium 4.1 (3.5-5.1) mmol/L Chloride 111 H (98-107) mmol/L Carbon Dioxide 23.4 (21.0-32.0) mmol/L BUN 10 (7.0-18.0) mg/dL Creatinine 1.0 (0.8-1.3) mg/dL Est Cr Clr Drug Dosing 123.30 mL/min Estimated GFR (MDRD) > 60.0 ml/min Glucose 111 H (74-106) mg/dL Calcium 8.3 L (8.5-10.1) mg/dL Magnesium (1.5-2.0) mg/dL Total Bilirubin 0.3 (0.2-1.0) mg/dL AST 25 (15-37) IU/L ALT 40 (14-63) IU/L Alkaline Phosphatase 67 (46-116) U/L Creatine Kinase 694 H 433 H (26-308) U/L Total Protein 5.8 L (6.4-8.2) g/dL Albumin 3.0 L (3.4-5.0) g/dL Globulin 2.8 (2.0-3.5) g/dL Albumin/Globulin Ratio 1.1 L (1.3-2.8) 02/26/18 Range/Units 05:35 WBC (4.0-11.0) K/uL RBC (4.50-5.90) M/uL Hgb (13.0-17.0) g/dL Hct (38.0-50.0) % MCV (80.0-98.0) fL MCH (27.0-32.0) pg MCHC (31.0-37.0) g/dL RDW Std Deviation (28.0-62.0) fl RDW Coeff of Anil (11.0-15.0) % Plt Count (150-400) K/uL MPV (7.40-12.00) fL Add Manual Diff Neutrophils % (Manual) (48.0-80.0) % Band Neutrophils % % Lymphocytes % (Manual) (16.0-40.0) % Monocytes % (Manual) (0.0-15.0) % Eosinophils % (Manual) (0.0-7.0) % Basophils % (Manual) (0.0-1.5) % Nucleated RBC % /100WBC Absolute Seg Neuts (1.4-5.7) Band Neutrophils # Lymphocytes # (Manual) (0.6-2.4) Monocytes # (Manual) (0.0-0.8) Eosinophils # (Manual) (0.0-0.7) Basophils # (Manual) (0.0-0.1) Nucleated RBCs # K/uL Sodium (136-148) mmol/L Potassium (3.5-5.1) mmol/L Chloride (98-107) mmol/L Carbon Dioxide (21.0-32.0) mmol/L BUN (7.0-18.0) mg/dL Creatinine (0.8-1.3) mg/dL Est Cr Clr Drug Dosing mL/min Estimated GFR (MDRD) ml/min Glucose (74-106) mg/dL Calcium (8.5-10.1) mg/dL Magnesium 1.7 (1.5-2.0) mg/dL Total Bilirubin (0.2-1.0) mg/dL AST (15-37) IU/L ALT (14-63) IU/L Alkaline Phosphatase (46-116) U/L Creatine Kinase (26-308) U/L Total Protein (6.4-8.2) g/dL Albumin (3.4-5.0) g/dL Globulin (2.0-3.5) g/dL Albumin/Globulin Ratio (1.3-2.8) Med Orders - Current: Current Medications Hydrocodone Bitart/Acetaminophen ([place] 325-5 Mg) 1 tab PO Q3H PRN PRN Reason: Pain Diphenhydramine HCl (Benadryl) 50 mg IVPUSH Q6H PRN PRN Reason: Itching Last Admin: 02/25/18 22:40 Dose: 50 mg Guaifenesin (Robitussin) 200 mg PO Q4H PRN PRN Reason: Cough Last Admin: 02/25/18 13:41 Dose: 200 mg Sodium Chloride (Normal Saline) 1,000 mls @ 200 mls/hr IV ASDIRECTED [facility] Last Admin: 02/26/18 06:33 Dose: 200 mls/hr Morphine Sulfate (Morphine) 4 mg IVPUSH Q4H PRN PRN Reason: Pain Last Admin: 02/25/18 17:27 Dose: 4 mg Fluticasone/Salmeterol (Advair Diskus 100-50) 1 puff INH BID [facility] Last Admin: 02/26/18 08:37 Dose: 1 disk Sodium Chloride (Saline Flush) 10 ml FLUSH ASDIRECTED PRN PRN Reason: Keep Vein Open Sodium Chloride (Saline Flush) 2.5 ml FLUSH ASDIRECTED PRN PRN Reason: Keep Vein Open Discontinued Medications Albuterol/Ipratropium (Duoneb 3.0-0.5 Mg/3 Ml) 3 ml NEB Q4HRRT PRN PRN Reason: sob Enoxaparin Sodium (Lovenox) 40 mg SUBCUT Q24H [facility] Last Admin: 02/24/18 02:33 Dose: Not Given Famotidine (Pepcid) 20 mg PO DAILY [facility] Sodium Chloride (Normal Saline) 1,000 mls @ 999 mls/hr IV .Bolus ONE Stop: 02/23/18 21:26 Last Admin: 02/23/18 20:54 Dose: 999 mls/hr Sodium Chloride (Normal Saline) 1,000 mls @ 999 mls/hr IV .Bolus ONE Stop: 02/23/18 23:07 Last Admin: 02/23/18 22:18 Dose: 999 mls/hr Magnesium Sulfate 2 gm/ Premix 50 mls @ 50 mls/hr IV ONETIME ONE Stop: 02/25/18 09:06 Last Admin: 02/25/18 08:28 Dose: 50 mls/hr Methylprednisolone Sodium Succinate (Solu-Medrol) 40 mg IVPUSH Q6H [facility] Last Admin: 02/24/18 20:31 Dose: Not Given Minocycline HCl (Minocin) 50 mg PO BID [facility] Oxycodone/Acetaminophen (Percocet 325-5 Mg) 1 tab PO Q4H PRN PRN Reason: Pain Last Admin: 02/25/18 20:00 Dose: 1 tab Fluticasone/Salmeterol (Advair Diskus 250-50) 1 puff INH ONETIME ONE Stop: 02/24/18 19:08 Last Admin: 02/24/18 20:32 Dose: Not Given - Exam General: Reports: Alert, Oriented HEENT: Reports: Pupils Equal, Pupils Reactive, EOMI Neck: Reports: Supple, Trachea Midline, No JVD Lungs: Reports: Clear to Auscultation, Normal Respiratory Effort Cardiovascular: Reports: Regular Rate, Regular Rhythm, No Murmurs GI/Abdominal Exam: Normal Bowel Sounds, Soft, Non-Tender, No Organomegaly, No Distention, No Abnormal Bruit, No Mass Extremities: Normal Inspection Skin: Reports: Warm, Dry, Intact
== END 2018-02-26 10:03 | disposition home or self-care (01) ==
LOC: MW.ED 20:14 → MW.MS 22:57
PROVIDERS: ADMIT Internal Medicine; ATTEND Internal Medicine
DX: M62.82 Rhabdomyolysis (principal); Z79.899 Other long term (current) drug therapy; Z88.1 Allergy status to other antibiotic agents; F17.210 Nicotine dependence, cigarettes, uncomplicated
CPT/HCPCS: 36415; 80053; 81001; 82550; 83735; 84100; 85025; 96360; 96361; 99284; A9270; J1200; J2270; J3475; J7040; 96374; 96375; 96376; 99283; G0378

== ENCOUNTER 2018-04-19 21:55 | Observation (INO) | payer OTHER ==
[2018-04-19] MEDS ORDERED: Sodium Chloride 0.9% 1,000 ML IV ONE ×2 (21:56→23:40)
--- NOTE | 2018-04-19 22:04 | EDM.PDOC ---
<Wilmar Nelson - Last Filed: 04/19/18 23:41> ED HPI GENERAL MEDICAL PROBLEM - General Stated Complaint: STUMBLED INTO ER SAYING HE NEEDED FLUIDS Time Seen by Provider: 04/19/18 21:57 - Related Data Allergies Allergy/AdvReac Type Severity Reaction Status Date / Time cefaclor [From Ceclor] Allergy Hives Verified 04/20/18 02:54 Home Meds: Home Meds Acetaminophen [Tylenol] 650 mg PO Q4H PRN #60 tab 02/26/18 [Rx] ED ROS GENERAL - Review of Systems Review Of Systems: ROS reveals no pertinent complaints other than HPI. ED EXAM, GENERAL - Physical Exam Exam: See Below Course - Vital Signs Text/Narrative:: Patient emergency department course has been unremarkable CPK is over thousand patients hemoconcentrated also is noticeable elevated white blood cell count is no clinical evidence of infection he has some improvement after IV fluids will be admitted with diagnosis of 1 dehydration to rhabdomyolysis Last Recorded V/S: Last Vital Signs Temp 97.8 F 04/20/18 11:34 Pulse 79 04/20/18 11:34 Resp 22 H 04/20/18 11:34 BP 116/52 L 04/20/18 11:34 Pulse Ox 98 04/20/18 11:34 - Orders/Labs/Meds Orders: Active Orders 24 hr Category Date Time Status EKG Documentation Completion [RC] STAT Care 04/19/18 21:56 Active DRUG SCREEN, URINE [URCHEM] Stat Lab 04/19/18 23:55 Ordered UA W/MICROSCOPIC [URIN] Stat Lab 04/19/18 23:55 Ordered Medication Orders Cyclobenzaprine HCl (Flexeril) 10 mg PO TID PRN PRN Reason: Muscle Spasm Last Admin: 04/20/18 12:25 Dose: 10 mg Admin: 04/20/18 01:01 Dose: 10 mg Sodium Chloride (Normal Saline) 1,000 mls @ 250 mls/hr IV ASDIRECTED LORRIE Last Admin: 04/20/18 15:15 Dose: 250 mls/hr Infusion: 04/20/18 15:15 Dose: 250 mls/hr Admin: 04/20/18 12:30 Dose: 250 mls/hr Infusion: 04/20/18 12:30 Dose: 250 mls/hr Admin: 04/20/18 11:42 Dose: 250 mls/hr Infusion: 04/20/18 11:28 Dose: 250 mls/hr Admin: 04/20/18 07:28 Dose: 250 mls/hr Infusion: 04/20/18 07:02 Dose: 250 mls/hr Admin: 04/20/18 03:02 Dose: 250 mls/hr Sodium Chloride (Normal Saline) 1,000 mls @ 999 mls/hr IV ASDIRECTED LORRIE Stop: 04/21/18 09:46 Last Admin: 04/20/18 10:25 Dose: 999 mls/hr Infusion: 04/20/18 09:58 Dose: 999 mls/hr Admin: 04/20/18 08:57 Dose: 999 mls/hr Morphine Sulfate (Morphine) 2 mg IVPUSH Q4H PRN PRN Reason: Pain Last Admin: 04/20/18 12:24 Dose: 2 mg Admin: 04/20/18 08:53 Dose: 2 mg Tramadol HCl (Ultram) 50 mg PO Q6H PRN PRN Reason: Pain Labs: Laboratory Tests 04/19/18 04/19/18 04/19/18 Range/Units 21:44 21:44 22:00 WBC 21.76 H (4.0-11.0) K/uL RBC 5.47 (4.50-5.90) M/uL Hgb 17.7 H (13.0-17.0) g/dL Hct 48.2 (38.0-50.0) % MCV 88.1 (80.0-98.0) fL MCH 32.4 H (27.0-32.0) pg MCHC 36.7 (31.0-37.0) g/dL RDW Std Deviation 42.2 (28.0-62.0) fl RDW Coeff of Anil 13 (11.0-15.0) % Plt Count 470 H (150-400) K/uL MPV 9.90 (7.40-12.00) fL Add Manual Diff YES Neutrophils % (Manual) 69 (48.0-80.0) % Band Neutrophils % 3 % Lymphocytes % (Manual) 25 (16.0-40.0) % Monocytes % (Manual) 3 (0.0-15.0) % Nucleated RBC % 0.0 /100WBC Absolute Seg Neuts 15.0 H (1.4-5.7) Band Neutrophils # 0.7 Lymphocytes # (Manual) 5.4 H (0.6-2.4) Monocytes # (Manual) 0.7 (0.0-0.8) Nucleated RBCs # 0 K/uL Lactate 3.4 H (0.20-2.00) mmol/L Sodium 134 L (136-148) mmol/L Potassium 3.9 (3.5-5.1) mmol/L Chloride 95 L (98-107) mmol/L Carbon Dioxide 21.1 (21.0-32.0) mmol/L BUN 20 H (7.0-18.0) mg/dL Creatinine 1.6 H (0.8-1.3) mg/dL Est Cr Clr Drug Dosing TNP Estimated GFR (MDRD) 50.3 ml/min Glucose 110 H (74-106) mg/dL Calcium 10.4 H (8.5-10.1) mg/dL Total Bilirubin 1.2 H (0.2-1.0) mg/dL AST 48 H (15-37) IU/L ALT 66 H (14-63) IU/L Alkaline Phosphatase 94 (46-116) U/L Creatine Kinase 1035 H (26-308) U/L Total Protein 8.8 H (6.4-8.2) g/dL Albumin 5.2 H (3.4-5.0) g/dL Globulin 3.6 H (2.0-3.5) g/dL Albumin/Globulin Ratio 1.4 (1.3-2.8) Ethyl Alcohol mg/dL 04/19/18 Range/Units 22:01 WBC (4.0-11.0) K/uL RBC (4.50-5.90) M/uL Hgb (13.0-17.0) g/dL Hct (38.0-50.0) % MCV (80.0-98.0) fL MCH (27.0-32.0) pg MCHC (31.0-37.0) g/dL RDW Std Deviation (28.0-62.0) fl RDW Coeff of Anil (11.0-15.0) % Plt Count (150-400) K/uL MPV (7.40-12.00) fL Add Manual Diff Neutrophils % (Manual) (48.0-80.0) % Band Neutrophils % % Lymphocytes % (Manual) (16.0-40.0) % Monocytes % (Manual) (0.0-15.0) % Nucleated RBC % /100WBC Absolute Seg Neuts (1.4-5.7) Band Neutrophils # Lymphocytes # (Manual) (0.6-2.4) Monocytes # (Manual) (0.0-0.8) Nucleated RBCs # K/uL Lactate (0.20-2.00) mmol/L Sodium (136-148) mmol/L Potassium (3.5-5.1) mmol/L Chloride (98-107) mmol/L Carbon Dioxide (21.0-32.0) mmol/L BUN (7.0-18.0) mg/dL Creatinine (0.8-1.3) mg/dL Est Cr Clr Drug Dosing Estimated GFR (MDRD) ml/min Glucose (74-106) mg/dL Calcium (8.5-10.1) mg/dL Total Bilirubin (0.2-1.0) mg/dL AST (15-37) IU/L ALT (14-63) IU/L Alkaline Phosphatase (46-116) U/L Creatine Kinase (26-308) U/L Total Protein (6.4-8.2) g/dL Albumin (3.4-5.0) g/dL Globulin (2.0-3.5) g/dL Albumin/Globulin Ratio (1.3-2.8) Ethyl Alcohol <3 mg/dL Meds: Medications Generic Name Dose Route Start Last Admin Trade Name Freq PRN Reason Stop Dose Admin Cyclobenzaprine HCl 10 mg 04/20/18 00:11 04/20/18 12:25 Flexeril PO 10 mg TID PRN Administration Muscle Spasm Sodium Chloride 1,000 mls @ 250 mls/hr 04/20/18 00:15 04/20/18 15:15 Normal Saline IV 250 mls/hr ASDIRECTED LORRIE Administration Sodium Chloride 1,000 mls @ 999 mls/hr 04/20/18 08:45 04/20/18 10:25 Normal Saline IV 04/21/18 09:46 999 mls/hr ASDIRECTED LORRIE Administration Morphine Sulfate 2 mg 04/20/18 00:12 04/20/18 12:24 Morphine IVPUSH 2 mg Q4H PRN Administration Pain Tramadol HCl 50 mg 04/20/18 00:12 Ultram PO Q6H PRN Pain Discontinued Medications Generic Name Dose Route Start Last Admin Trade Name Mitch PRN Reason Stop Dose Admin Sodium Chloride 1,000 mls @ 999 mls/hr 04/19/18 21:56 04/19/18 22:21 Normal Saline IV 04/19/18 22:56 999 mls/hr STAT ONE Administration Sodium Chloride 1,000 mls @ 999 mls/hr 04/19/18 23:40 04/19/18 23:45 Normal Saline IV 04/20/18 00:40 999 mls/hr STAT ONE Administration Sodium Chloride 1,000 mls @ 999 mls/hr 04/20/18 00:11 04/20/18 01:05 Normal Saline IV 04/20/18 01:11 999 mls/hr .Bolus ONE Administration Morphine Sulfate 4 mg 04/19/18 22:05 04/19/18 22:20 Morphine IVPUSH 04/19/18 22:06 4 mg ONETIME ONE Administration Morphine Sulfate Confirm 04/19/18 22:14 04/19/18 22:24 Morphine Administered 04/19/18 22:15 Not Given Dose 4 mg .ROUTE .STK-MED ONE Departure - Departure Time of Disposition: 23:38 Disposition: Refer to Observation Condition: Good Clinical Impression: Dehydration Leukocytosis Qualifiers: Leukocytosis type: unspecified Qualified Code(s): D72.829 - Elevated white blood cell count, unspecified Rhabdomyolysis Qualifiers: Rhabdomyolysis type: non-traumatic Qualified Code(s): M62.82 - Rhabdomyolysis - Discharge Information - My Orders Last 24 Hours: My Active Orders 04/19/18 21:56 EKG Documentation Completion [RC] STAT 04/19/18 23:55 UA W/MICROSCOPIC [URIN] Stat - Assessment/Plan Last 24 Hours: My Active Orders 04/19/18 21:56 EKG Documentation Completion [RC] STAT 04/19/18 23:55 UA W/MICROSCOPIC [URIN] Stat <Fausto Garcia E - Last Filed: 04/20/18 15:34> ED HPI GENERAL MEDICAL PROBLEM - General Source of Information: Reports: Patient History Limitations: Reports: No Limitations - History of Present Illness INITIAL COMMENTS - FREE TEXT/NARRATIVE: HISTORY AND PHYSICAL: History of present illness: Patient is a 32-year-old male who presents to the emergency room requesting IV fluids. Prior to arrival he have muscular cramping and pain. He reports that he has chronic intermittent rhabdomyolysis and does require IV fluid and pain medications. States his rhabdomyolosis started at the age of 14. He states he has been seen at [facility] and multiple other places for further testing and evaluation, no etiology has been found for his CK elevation. Patient does chronically have a tic-like tremor which he states is normal for him, also states he has not found an etiology for this. Reports he's been hospitalized 3- 4 times a year for this symptom. 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 In the past, he has used alcohol occasionally to alleviate his discomfort. He denies any fever, chills, chest pain, shortness of breath or cough. Denies any headache, dizziness, syncope or change in vision. Denies any abdominal pain , nausea, vomiting, diarrhea, constipation. States he has been able to eat and drink appropriately. Review of systems: As per history of present illness and below otherwise all systems reviewed and negative. Past medical history: As per history of present illness and as reviewed below otherwise noncontributory. Surgical history: As per history of present illness and as reviewed below otherwise noncontributory. Social history: No reported history of drug or alcohol abuse. Family history: As per history of present illness and as reviewed below otherwise noncontributory. Physical exam: General: Well-developed and well-nourished 32-year-old male. Alert and oriented. He does have a tic-like tremor, non-voluntary, to all extremities. Nontoxic appearing and in no acute distress. HEENT: Atraumatic, normocephalic, pupils equal and reactive bilaterally, negative for conjunctival pallor or scleral icterus, mucous membranes moist, nasal drainage to bilateral nares, throat clear, neck supple, nontender, trachea midline. No drooling or trismus noted. No meningeal signs Lungs: Clear to auscultation, breath sounds equal bilaterally, chest nontender. Heart: S1S2, regular rate and rhythm without overt murmur Abdomen: Soft, nondistended, nontender. Negative for masses or hepatosplenomegaly. Negative for costovertebral tenderness. Pelvis: Stable nontender. Genitourinary: Deferred. Rectal: Deferred. Skin: Intact, warm, dry. No lesions or rashes noted. Extremities: Atraumatic, moves all extremities per self without difficulty or deficits, tic-like nonvoluntary tremor to all extremities. Ambulatory. He is negative for cords or calf pain. Neurovascular unremarkable. Neuro: Awake, alert, oriented. Cranial nerves II through XII unremarkable. Cerebellum unremarkable. Motor and sensory unremarkable throughout. Exam nonfocal. Notes: 02/24/2018: He was admitted to our hospital for rhabdomyolysis. At this time he received IV fluid and continued monitoring. D/c to home the following day. Patient is requesting IV morphine as he states this is the only medication that helps with the muscle cramping. 2210: Dr Nelson assumed care of this patient. Diagnostics: CBC, CMP, CPK, UA, EKG, chest x-ray Therapeutics: IV fluid, morphine Impression: Rhabdomyalisis Dehydration Leukocytosis Plan: Admission per Dr Wen Definitive disposition and diagnosis as appropriate pending reevaluation and review of above. Onset: Today Duration: Hour(s):, Intermittent Location: Reports: Generalized Past Medical History HEENT History: Reports: None Cardiovascular History: Reports: None Respiratory History: Reports: None Gastrointestinal History: Reports: None Genitourinary History: Reports: None Musculoskeletal History: Reports: Other (See Below) Other Musculoskeletal History: muscle myopathy Neurological History: Reports: None Psychiatric History: Reports: None Endocrine/Metabolic History: Reports: None Hematologic History: Reports: None Immunologic History: Reports: None Oncologic (Cancer) History: Reports: None Dermatologic History: Reports: None - Infectious Disease History Infectious Disease History: Reports: None - Past Surgical History Head Surgeries/Procedures: Reports: None HEENT Surgical History: Reports: Oral Surgery Social & Family History - Family History Family Medical History: Noncontributory - Caffeine Use Caffeine Use: Reports: Coffee, Soda ED ROS GENERAL - Review of Systems Review Of Systems: ROS reveals no pertinent complaints other than HPI. ED EXAM, GENERAL - Physical Exam Exam: See Below (See dictation) Course - Vital Signs Last Recorded V/S: Last Vital Signs Temp 97.8 F 04/20/18 11:34 Pulse 79 04/20/18 11:34 Resp 22 H 04/20/18 11:34 BP 116/52 L 04/20/18 11:34 Pulse Ox 98 04/20/18 11:34 - Orders/Labs/Meds Labs: Laboratory Tests 04/19/18 04/19/18 04/19/18 Range/Units 21:44 21:44 22:00 WBC 21.76 H (4.0-11.0) K/uL RBC 5.47 (4.50-5.90) M/uL Hgb 17.7 H (13.0-17.0) g/dL Hct 48.2 (38.0-50.0) % MCV 88.1 (80.0-98.0) fL MCH 32.4 H (27.0-32.0) pg MCHC 36.7 (31.0-37.0) g/dL RDW Std Deviation 42.2 (28.0-62.0) fl RDW Coeff of Anil 13 (11.0-15.0) % Plt Count 470 H (150-400) K/uL MPV 9.90 (7.40-12.00) fL Add Manual Diff YES Neutrophils % (Manual) 69 (48.0-80.0) % Band Neutrophils % 3 % Lymphocytes % (Manual) 25 (16.0-40.0) % Monocytes % (Manual) 3 (0.0-15.0) % Nucleated RBC % 0.0 /100WBC Absolute Seg Neuts 15.0 H (1.4-5.7) Band Neutrophils # 0.7 Lymphocytes # (Manual) 5.4 H (0.6-2.4) Monocytes # (Manual) 0.7 (0.0-0.8) Nucleated RBCs # 0 K/uL Lactate 3.4 H (0.20-2.00) mmol/L Sodium 134 L (136-148) mmol/L Potassium 3.9 (3.5-5.1) mmol/L Chloride 95 L (98-107) mmol/L Carbon Dioxide 21.1 (21.0-32.0) mmol/L BUN 20 H (7.0-18.0) mg/dL Creatinine 1.6 H (0.8-1.3) mg/dL Est Cr Clr Drug Dosing TNP Estimated GFR (MDRD) 50.3 ml/min Glucose 110 H (74-106) mg/dL Calcium 10.4 H (8.5-10.1) mg/dL Total Bilirubin 1.2 H (0.2-1.0) mg/dL AST 48 H (15-37) IU/L ALT 66 H (14-63) IU/L Alkaline Phosphatase 94 (46-116) U/L Creatine Kinase 1035 H (26-308) U/L Total Protein 8.8 H (6.4-8.2) g/dL Albumin 5.2 H (3.4-5.0) g/dL Globulin 3.6 H (2.0-3.5) g/dL Albumin/Globulin Ratio 1.4 (1.3-2.8) Ethyl Alcohol mg/dL 04/19/18 Range/Units 22:01 WBC (4.0-11.0) K/uL RBC (4.50-5.90) M/uL Hgb (13.0-17.0) g/dL Hct (38.0-50.0) % MCV (80.0-98.0) fL MCH (27.0-32.0) pg MCHC (31.0-37.0) g/dL RDW Std Deviation (28.0-62.0) fl RDW Coeff of Anil (11.0-15.0) % Plt Count (150-400) K/uL MPV (7.40-12.00) fL Add Manual Diff Neutrophils % (Manual) (48.0-80.0) % Band Neutrophils % % Lymphocytes % (Manual) (16.0-40.0) % Monocytes % (Manual) (0.0-15.0) % Nucleated RBC % /100WBC Absolute Seg Neuts (1.4-5.7) Band Neutrophils # Lymphocytes # (Manual) (0.6-2.4) Monocytes # (Manual) (0.0-0.8) Nucleated RBCs # K/uL Lactate (0.20-2.00) mmol/L Sodium (136-148) mmol/L Potassium (3.5-5.1) mmol/L Chloride (98-107) mmol/L Carbon Dioxide (21.0-32.0) mmol/L BUN (7.0-18.0) mg/dL Creatinine (0.8-1.3) mg/dL Est Cr Clr Drug Dosing Estimated GFR (MDRD) ml/min Glucose (74-106) mg/dL Calcium (8.5-10.1) mg/dL Total Bilirubin (0.2-1.0) mg/dL AST (15-37) IU/L ALT (14-63) IU/L Alkaline Phosphatase (46-116) U/L Creatine Kinase (26-308) U/L Total Protein (6.4-8.2) g/dL Albumin (3.4-5.0) g/dL Globulin (2.0-3.5) g/dL Albumin/Globulin Ratio (1.3-2.8) Ethyl Alcohol <3 mg/dL Meds: Medications Generic Name Dose Route Start Last Admin Trade Name Nicoq PRN Reason Stop Dose Admin Cyclobenzaprine HCl 10 mg 04/20/18 00:11 04/20/18 12:25 Flexeril PO 10 mg TID PRN Administration Muscle Spasm Sodium Chloride 1,000 mls @ 250 mls/hr 04/20/18 00:15 04/20/18 15:15 Normal Saline IV 250 mls/hr ASDIRECTED LRORIE Administration Sodium Chloride 1,000 mls @ 999 mls/hr 04/20/18 08:45 04/20/18 10:25 Normal Saline IV 04/21/18 09:46 999 mls/hr ASDIRECTED LORRIE Administration Morphine Sulfate 2 mg 04/20/18 00:12 04/20/18 12:24 Morphine IVPUSH 2 mg Q4H PRN Administration Pain Tramadol HCl 50 mg 04/20/18 00:12 Ultram PO Q6H PRN Pain Discontinued Medications Generic Name Dose Route Start Last Admin Trade Name Freq PRN Reason Stop Dose Admin Sodium Chloride 1,000 mls @ 999 mls/hr 04/19/18 21:56 04/19/18 22:21 Normal Saline IV 04/19/18 22:56 999 mls/hr STAT ONE Administration Sodium Chloride 1,000 mls @ 999 mls/hr 04/19/18 23:40 04/19/18 23:45 Normal Saline IV 04/20/18 00:40 999 mls/hr STAT ONE Administration Sodium Chloride 1,000 mls @ 999 mls/hr 04/20/18 00:11 04/20/18 01:05 Normal Saline IV 04/20/18 01:11 999 mls/hr .Bolus ONE Administration Morphine Sulfate 4 mg 04/19/18 22:05 04/19/18 22:20 Morphine IVPUSH 04/19/18 22:06 4 mg ONETIME ONE Administration Morphine Sulfate Confirm 04/19/18 22:14 04/19/18 22:24 Morphine Administered 04/19/18 22:15 Not Given Dose 4 mg .ROUTE .[facility] ONE
[2018-04-19] MEDS ORDERED: Morphine 4 MG/ML Syringe IVPUSH ONE (22:05)
[2018-04-19] MEDS ORDERED: Morphine 2 MG/ML Syringe ONE (22:14)
[2018-04-19 22:25] LABS: CHLORIDE,CL 95 mmol/L (98-107); SODIUM,NA 134 mmol/L (136-148)
[2018-04-20] MEDS ORDERED: Sodium Chloride 0.9% 1,000 ML IV ONE (00:11)
[2018-04-20] MEDS: Cyclobenzaprine 10 MG Tab PO PRN ×2 (01:01→12:25)
[2018-04-20] MEDS: Sodium Chloride 0.9% 1,000 ML IV SCH ×9 (03:02→23:49)
[2018-04-20 06:18] LABS: CHLORIDE,CL 106 mmol/L (98-107); SODIUM,NA 139 mmol/L (136-148)
--- NOTE | 2018-04-20 07:51 | PCM.HP ---
H&P History of Present Illness - General Date of Service: 04/20/18 Admit Problem/Dx: Admission Diagnosis/Problem Admission Diagnosis/Problem Dehydration Source of Information: Patient History Limitations: Reports: No Limitations - History of Present Illness Initial Comments - Free Text/Narative: This 32 year old male with pmh of myopathy of unknown etiology presented last evening with complaints of muscle cramping, dehydration and needing IV fluids. He reports he normally gets rhabdomyolysis 3-4 times a year needing hospitalization and IV fluids along with pain medications. He denies recent trauma, excessive alcohol use. He denies fevers, URI, chest pain or palpitations. No shortness of breath abdominal pain or trouble urinating. He reports he normally gets 4 L of IV fluids fast and IV fluid infusion to decrease his levels. He states Morphine helps best for the pain. he does not take any medication at home for the pain when this happens. His last admission was in February of this year in our facility. In the ED leukcytosis noted at 21,760, hgb 17.7, lactate 3.4, BUN 20, Cr 1.6 bili 1.2, AST 48, ALT 66, CPK 1035, UA negative, no proteins, 15 ketones. CXR negative. He was given Morphine in the ED along wtih 2 L NS. He was admitted observation for rhabdomyolysis and muscle pain. Generalized Pain Score (Numeric/FACES): 8 - Related Data Allergies/Adverse Reactions: Allergies Allergy/AdvReac Type Severity Reaction Status Date / Time cefaclor [From Ceclor] Allergy Hives Verified 04/20/18 02:54 Home Medications: Home Meds Acetaminophen [Tylenol] 650 mg PO Q4H PRN #60 tab 02/26/18 [Rx] Past Medical History HEENT History: Reports: None Cardiovascular History: Reports: None. Denies: CAD, Hypertension, MA Respiratory History: Reports: None. Denies: COPD Gastrointestinal History: Reports: None. Denies: GERD Genitourinary History: Reports: None. Denies: Acute Renal Failure, Chronic Renal Insuffiency Musculoskeletal History: Reports: Other (See Below) Other Musculoskeletal History: muscle myopathy with associated rhabdomyolysis Neurological History: Reports: None Psychiatric History: Reports: None Endocrine/Metabolic History: Reports: None. Denies: Diabetes, Type II Hematologic History: Reports: None Immunologic History: Reports: None Oncologic (Cancer) History: Reports: None Dermatologic History: Reports: None - Infectious Disease History Infectious Disease History: Reports: Chicken Pox - Past Surgical History Head Surgeries/Procedures: Reports: None HEENT Surgical History: Reports: Oral Surgery Social & Family History - Family History Family Medical History: Noncontributory - Tobacco Use Smoking Status *Q: Never Smoker - Caffeine Use Caffeine Use: Reports: Coffee, Energy Drinks - Alcohol Use Alcohol Use in Last Twelve Months: Yes Alcohol Use Frequency: Binges - Recreational Drug Use Recreational Drug Use: No - Living Situation & Occupation Living situation: Reports: Occupation: Employed H&P Review of Systems - Review of Systems: Review Of Systems: See Below General: Reports: Weakness (generalized), Fatigue. Denies: Fever, Chills, Malaise HEENT: Reports: No Symptoms. Denies: Headaches, Sinus Congestion, Sore Throat, Vertigo Pulmonary: Reports: No Symptoms. Denies: Shortness of Breath Cardiovascular: Reports: No Symptoms. Denies: Chest Pain Gastrointestinal: Reports: No Symptoms. Denies: Abdominal Pain, Black Stool, Bloody Stool, Decreased Appetite, Nausea, Vomiting Genitourinary: Reports: No Symptoms. Denies: Dysuria, Frequency, Burning, Pain Musculoskeletal: Reports: Muscle Pain (cramping throughout is now gone, but has severe pain all over, feels like I have been hit by a plane. Not at baseline pain level yet.) Skin: Reports: No Symptoms Psychiatric: Reports: No Symptoms Neurological: Reports: No Symptoms Hematologic/Lymphatic: Reports: No Symptoms Immunologic: Reports: No Symptoms Exam - Exam Exam: See Below - Vital Signs Vital Signs: Last Vital Signs Temp 97.0 F 04/20/18 04:12 Pulse 75 04/20/18 04:12 Resp 18 04/20/18 04:12 BP 116/57 L 04/20/18 04:12 Pulse Ox 93 L 04/20/18 04:12 Weight: 95.254 kg - Exam General: Alert, Oriented, Cooperative HEENT: Conjunctiva Clear, Nares Patent, Pupils Equal Neck: Supple Lungs: Clear to Auscultation, Normal Respiratory Effort Cardiovascular: Regular Rate, Regular Rhythm GI/Abdominal Exam: Normal Bowel Sounds, Soft, Non-Tender Back Exam: Normal Inspection, Full Range of Motion, NT Extremities: Normal Inspection, Normal Range of Motion, Non-Tender, No Pedal Edema, Normal Capillary Refill Neuro Extensive - Mental Status: Alert, Oriented x3 Neuro Extensive - Motor, Sensory, Reflexes: CN II-XII Intact Psychiatric: Alert, Normal Affect, Normal Mood - Patient Data Lab Results Last 24 hrs: Laboratory Results - last 24 hr 04/19/18 04/19/18 04/19/18 Range/Units 21:44 21:44 22:00 WBC 21.76 H (4.0-11.0) K/uL RBC 5.47 (4.50-5.90) M/uL Hgb 17.7 H (13.0-17.0) g/dL Hct 48.2 (38.0-50.0) % MCV 88.1 (80.0-98.0) fL MCH 32.4 H (27.0-32.0) pg MCHC 36.7 (31.0-37.0) g/dL RDW Std Deviation 42.2 (28.0-62.0) fl RDW Coeff of Anil 13 (11.0-15.0) % Plt Count 470 H (150-400) K/uL MPV 9.90 (7.40-12.00) fL Neut % (Auto) (48.0-80.0) % Lymph % (Auto) (16.0-40.0) % [place] % (Auto) (0.0-15.0) % Eos % (Auto) (0.0-7.0) % Baso % (Auto) (0.0-1.5) % Neut # (Auto) (1.4-5.7) K/uL Lymph # (Auto) (0.6-2.4) K/uL [place] # (Auto) (0.0-0.8) K/uL Eos # (Auto) (0.0-0.7) K/uL Baso # (Auto) (0.0-0.1) K/uL Add Manual Diff YES Neutrophils % (Manual) 69 (48.0-80.0) % Band Neutrophils % 3 % Lymphocytes % (Manual) 25 (16.0-40.0) % Monocytes % (Manual) 3 (0.0-15.0) % Nucleated RBC % 0.0 /100WBC Absolute Seg Neuts 15.0 H (1.4-5.7) Band Neutrophils # 0.7 Lymphocytes # (Manual) 5.4 H (0.6-2.4) Monocytes # (Manual) 0.7 (0.0-0.8) Nucleated RBCs # 0 K/uL Lactate 3.4 H (0.20-2.00) mmol/L Sodium 134 L (136-148) mmol/L Potassium 3.9 (3.5-5.1) mmol/L Chloride 95 L (98-107) mmol/L Carbon Dioxide 21.1 (21.0-32.0) mmol/L BUN 20 H (7.0-18.0) mg/dL Creatinine 1.6 H (0.8-1.3) mg/dL Est Cr Clr Drug Dosing TNP Estimated GFR (MDRD) 50.3 ml/min Glucose 110 H (74-106) mg/dL Calcium 10.4 H (8.5-10.1) mg/dL Total Bilirubin 1.2 H (0.2-1.0) mg/dL AST 48 H (15-37) IU/L ALT 66 H (14-63) IU/L Alkaline Phosphatase 94 (46-116) U/L Creatine Kinase 1035 H (26-308) U/L Total Protein 8.8 H (6.4-8.2) g/dL Albumin 5.2 H (3.4-5.0) g/dL Globulin 3.6 H (2.0-3.5) g/dL Albumin/Globulin Ratio 1.4 (1.3-2.8) Urine Color Urine Appearance Urine pH (5.0-8.0) Ur Specific [place] (1.001-1.035) Urine Protein (NEGATIVE) mg/dL Urine Glucose (UA) (NEGATIVE) mg/dL Urine Ketones (NEGATIVE) mg/dL Urine Occult Blood (NEGATIVE) Urine Nitrite (NEGATIVE) Urine Bilirubin (NEGATIVE) Urine Urobilinogen (<2.0) EU/dL Ur Leukocyte Esterase (NEGATIVE) Urine RBC (0-2/HPF) Urine WBC (0-5/HPF) Ur Epithelial Cells (NONE-FEW) Urine Bacteria (NEGATIVE) Urine Opiates Screen (NEGATIVE) Ur Oxycodone Screen (NEGATIVE) Urine Methadone Screen (NEGATIVE) Ur Barbiturates Screen (NEGATIVE) Ur Phencyclidine Scrn (NEGATIVE) Ur Amphetamine Screen (NEGATIVE) U Methamphetamines Scrn (NEGATIVE) U Benzodiazepines Scrn (NEGATIVE) U Cocaine Metab Screen (NEGATIVE) U Marijuana (THC) Screen (NEGATIVE) Ethyl Alcohol mg/dL 04/19/18 04/19/18 04/19/18 Range/Units 22:01 23:55 23:55 WBC (4.0-11.0) K/uL RBC (4.50-5.90) M/uL Hgb (13.0-17.0) g/dL Hct (38.0-50.0) % MCV (80.0-98.0) fL MCH (27.0-32.0) pg MCHC (31.0-37.0) g/dL RDW Std Deviation (28.0-62.0) fl RDW Coeff of Anil (11.0-15.0) % Plt Count (150-400) K/uL MPV (7.40-12.00) fL Neut % (Auto) (48.0-80.0) % Lymph % (Auto) (16.0-40.0) % [place] % (Auto) (0.0-15.0) % Eos % (Auto) (0.0-7.0) % Baso % (Auto) (0.0-1.5) % Neut # (Auto) (1.4-5.7) K/uL Lymph # (Auto) (0.6-2.4) K/uL [place] # (Auto) (0.0-0.8) K/uL Eos # (Auto) (0.0-0.7) K/uL Baso # (Auto) (0.0-0.1) K/uL Add Manual Diff Neutrophils % (Manual) (48.0-80.0) % Band Neutrophils % % Lymphocytes % (Manual) (16.0-40.0) % Monocytes % (Manual) (0.0-15.0) % Nucleated RBC % /100WBC Absolute Seg Neuts (1.4-5.7) Band Neutrophils # Lymphocytes # (Manual) (0.6-2.4) Monocytes # (Manual) (0.0-0.8) Nucleated RBCs # K/uL Lactate (0.20-2.00) mmol/L Sodium (136-148) mmol/L Potassium (3.5-5.1) mmol/L Chloride (98-107) mmol/L Carbon Dioxide (21.0-32.0) mmol/L BUN (7.0-18.0) mg/dL Creatinine (0.8-1.3) mg/dL Est Cr Clr Drug Dosing Estimated GFR (MDRD) ml/min Glucose (74-106) mg/dL Calcium (8.5-10.1) mg/dL Total Bilirubin (0.2-1.0) mg/dL AST (15-37) IU/L ALT (14-63) IU/L Alkaline Phosphatase (46-116) U/L Creatine Kinase (26-308) U/L Total Protein (6.4-8.2) g/dL Albumin (3.4-5.0) g/dL Globulin (2.0-3.5) g/dL Albumin/Globulin Ratio (1.3-2.8) Urine Color YELLOW Urine Appearance CLEAR Urine pH 6.0 (5.0-8.0) Ur Specific [place] <= 1.005 (1.001-1.035) Urine Protein NEGATIVE (NEGATIVE) mg/dL Urine Glucose (UA) NEGATIVE (NEGATIVE) mg/dL Urine Ketones 15 H (NEGATIVE) mg/dL Urine Occult Blood NEGATIVE (NEGATIVE) Urine Nitrite NEGATIVE (NEGATIVE) Urine Bilirubin NEGATIVE (NEGATIVE) Urine Urobilinogen 0.2 (<2.0) EU/dL Ur Leukocyte Esterase NEGATIVE (NEGATIVE) Urine RBC NONE SEEN (0-2/HPF) Urine WBC NONE SEEN (0-5/HPF) Ur Epithelial Cells NOT SEEN (NONE-FEW) Urine Bacteria RARE (NEGATIVE) Urine Opiates Screen POSITIVE (NEGATIVE) Ur Oxycodone Screen NEGATIVE (NEGATIVE) Urine Methadone Screen NEGATIVE (NEGATIVE) Ur Barbiturates Screen NEGATIVE (NEGATIVE) Ur Phencyclidine Scrn NEGATIVE (NEGATIVE) Ur Amphetamine Screen NEGATIVE (NEGATIVE) U Methamphetamines Scrn NEGATIVE (NEGATIVE) U Benzodiazepines Scrn NEGATIVE (NEGATIVE) U Cocaine Metab Screen NEGATIVE (NEGATIVE) U Marijuana (THC) Screen NEGATIVE (NEGATIVE) Ethyl Alcohol <3 mg/dL 04/20/18 04/20/18 04/20/18 Range/Units 05:20 05:20 05:20 WBC 9.29 (4.0-11.0) K/uL RBC 4.52 (4.50-5.90) M/uL Hgb 14.3 (13.0-17.0) g/dL Hct 40.2 (38.0-50.0) % MCV 88.9 (80.0-98.0) fL MCH 31.6 (27.0-32.0) pg MCHC 35.6 (31.0-37.0) g/dL RDW Std Deviation 43.4 (28.0-62.0) fl RDW Coeff of Anil 13 (11.0-15.0) % Plt Count 316 (150-400) K/uL MPV 9.40 (7.40-12.00) fL Neut % (Auto) 67.8 (48.0-80.0) % Lymph % (Auto) 23.4 (16.0-40.0) % [place] % (Auto) 7.0 (0.0-15.0) % Eos % (Auto) 1.3 (0.0-7.0) % Baso % (Auto) 0.5 (0.0-1.5) % Neut # (Auto) 6.3 H (1.4-5.7) K/uL Lymph # (Auto) 2.2 (0.6-2.4) K/uL [place] # (Auto) 0.7 (0.0-0.8) K/uL Eos # (Auto) 0.1 (0.0-0.7) K/uL Baso # (Auto) 0.1 (0.0-0.1) K/uL Add Manual Diff Neutrophils % (Manual) (48.0-80.0) % Band Neutrophils % % Lymphocytes % (Manual) (16.0-40.0) % Monocytes % (Manual) (0.0-15.0) % Nucleated RBC % 0.0 /100WBC Absolute Seg Neuts (1.4-5.7) Band Neutrophils # Lymphocytes # (Manual) (0.6-2.4) Monocytes # (Manual) (0.0-0.8) Nucleated RBCs # 0 K/uL Lactate 0.4 (0.20-2.00) mmol/L Sodium 139 (136-148) mmol/L Potassium 4.1 (3.5-5.1) mmol/L Chloride 106 (98-107) mmol/L Carbon Dioxide 26.1 (21.0-32.0) mmol/L BUN 18 (7.0-18.0) mg/dL Creatinine 1.2 (0.8-1.3) mg/dL Est Cr Clr Drug Dosing 102.75 Estimated GFR (MDRD) > 60.0 ml/min Glucose 97 (74-106) mg/dL Calcium 8.3 L (8.5-10.1) mg/dL Total Bilirubin 0.4 (0.2-1.0) mg/dL AST 42 H (15-37) IU/L ALT 50 (14-63) IU/L Alkaline Phosphatase 72 (46-116) U/L Creatine Kinase 1799 H (26-308) U/L Total Protein 6.2 L (6.4-8.2) g/dL Albumin 3.5 (3.4-5.0) g/dL Globulin 2.7 (2.0-3.5) g/dL Albumin/Globulin Ratio 1.3 (1.3-2.8) Urine Color Urine Appearance Urine pH (5.0-8.0) Ur Specific [place] (1.001-1.035) Urine Protein (NEGATIVE) mg/dL Urine Glucose (UA) (NEGATIVE) mg/dL Urine Ketones (NEGATIVE) mg/dL Urine Occult Blood (NEGATIVE) Urine Nitrite (NEGATIVE) Urine Bilirubin (NEGATIVE) Urine Urobilinogen (<2.0) EU/dL Ur Leukocyte Esterase (NEGATIVE) Urine RBC (0-2/HPF) Urine WBC (0-5/HPF) Ur Epithelial Cells (NONE-FEW) Urine Bacteria (NEGATIVE) Urine Opiates Screen (NEGATIVE) Ur Oxycodone Screen (NEGATIVE) Urine Methadone Screen (NEGATIVE) Ur Barbiturates Screen (NEGATIVE) Ur Phencyclidine Scrn (NEGATIVE) Ur Amphetamine Screen (NEGATIVE) U Methamphetamines Scrn (NEGATIVE) U Benzodiazepines Scrn (NEGATIVE) U Cocaine Metab Screen (NEGATIVE) U Marijuana (THC) Screen (NEGATIVE) Ethyl Alcohol mg/dL Result Diagrams: 04/20/18 05:20 04/20/18 05:20 - Problem List (1) Rhabdomyolysis SNOMED Code(s): 638644159 ICD Code: M62.82 - RHABDOMYOLYSIS Status: Acute Current Visit: No Qualifiers: Rhabdomyolysis type: non-traumatic Qualified Code(s): M62.82 - Rhabdomyolysis (2) Dehydration SNOMED Code(s): 84913588 ICD Code: E86.0 - DEHYDRATION Status: Acute Current Visit: No (3) Leukocytosis SNOMED Code(s): 477770144, 320231718 ICD Code: D72.829 - ELEVATED WHITE BLOOD CELL COUNT, UNSPECIFIED Status: Acute Current Visit: No (4) TALIB (acute kidney injury) SNOMED Code(s): 37062074 ICD Code: N17.9 - ACUTE KIDNEY FAILURE, UNSPECIFIED Status: Acute Current Visit: Yes (5) Unspecified myopathy SNOMED Code(s): 86451372 ICD Code: G72.9 - MYOPATHY, UNSPECIFIED Status: Chronic Current Visit: No Problem List Initiated/Reviewed/Updated: Yes Orders Last 24hrs: Active Orders 24 hr Category Date Time Status Patient Status [ADT] Stat ADT 04/19/18 23:42 Active EKG Documentation Completion [RC] STAT Care 04/19/18 21:56 Active Oxygen Therapy [RC] PRN Care 04/20/18 00:12 Active Up ad Concha [RC] ASDIRECTED Care 04/20/18 00:12 Active VTE/DVT Education [RC] PER UNIT ROUTINE Care 04/20/18 00:12 Active Vital Signs [RC] Q4H Care 04/20/18 00:12 Active Regular Diet [DIET] Diet 04/20/18 Breakfast Active Chest 1V Frontal [CR] Stat Exams 04/19/18 21:56 Taken DRUG SCREEN, URINE [URCHEM] Stat Lab 04/19/18 23:55 Ordered UA W/MICROSCOPIC [URIN] Stat Lab 04/19/18 23:55 Ordered Cyclobenzaprine [Flexeril] Med 04/20/18 00:11 Active 10 mg PO TID PRN Morphine Med 04/20/18 00:12 Active 2 mg IVPUSH Q4H PRN Sodium Chloride 0.9% [Normal Saline] 1,000 ml Med 04/20/18 00:15 Active IV ASDIRECTED traMADol [Ultram] Med 04/20/18 00:12 Active 50 mg PO Q6H PRN Sequential Compression Device [OM.PC] Per Unit Routine Oth 04/20/18 00:13 Ordered Medication Orders Cyclobenzaprine HCl (Flexeril) 10 mg PO TID PRN PRN Reason: Muscle Spasm Last Admin: 04/20/18 01:01 Dose: 10 mg Sodium Chloride (Normal Saline) 1,000 mls @ 250 mls/hr IV ASDIRECTED [facility] Last Admin: 04/20/18 07:28 Dose: 250 mls/hr Infusion: 04/20/18 07:02 Dose: 250 mls/hr Admin: 04/20/18 03:02 Dose: 250 mls/hr Morphine Sulfate (Morphine) 2 mg IVPUSH Q4H PRN PRN Reason: Pain Tramadol HCl (Ultram) 50 mg PO Q6H PRN PRN Reason: Pain Assessment/Plan Comment:: This 32 year old male admitted with acute dehydration, rhabdomyolysis, TALIB and generalized muscle pain 1. Rhabdomyolysis: Has hx of this due to myopathy of unknown etiology. CPK 1799 this morning, will give 2 L NS bolus and then maintain IVFs at 250 ml/hr. Renal improved, BUN 18, and Cr 1.2 and he is urinating. Lactate 0.4 now. Hgb decreased to 14.4 today. HR has stabilized in the 70s. Cramping is gone, but now has muscle pain, which he states feels like he has been hit by a plane. Where normally he does have constant generalized pain, but only a car has hit him. Requesting Morphine. Will recheck CPK this afternoon. He is eager to go home when he is feeling better and CPK has improved. 2. Leukocytosis: resolved. No source of infection. Likely seconday to dehydration. WBC 9,290 this morning. VTE prophylaxis: SCDs and ambulation Dispo: possibly later to or may need 1 day
[2018-04-20] MEDS: Morphine 2 MG/ML Syringe IVPUSH PRN ×4 (08:53→22:27)
--- NOTE | 2018-04-20 09:29 | CR ---
EXAM DATE: 04/19/18 PATIENT'S AGE: 32 Patient: KRISTINA CHARLES Facility: [place], [place] Site . Site : 1985 Study: XRay Chest [id number] 10:38:53 PM Ordering Physician: Doctor Caldwell Final Report: INDICATION: Dehydration TECHNIQUE: Chest 1 view. COMPARISON: None. FINDINGS: Cardiovascular and mediastinum: Heart size and vasculature are normal in caliber and appearance. Mediastinum is within normal limits. Lungs and pleural space: Lungs are clear. No sign of infiltrate or mass. No sign of pleural effusion. No pneumothorax. Bones and soft tissues: No significant findings. IMPRESSION: Unremarkable chest. Dictated by: Joesph Flores MD @ 04/19/2018 22:50:15 (Electronic Signature) Report Signed by Proxy. [facility]ITALJud
[2018-04-20] MEDS: traMADol 50 MG Tab PO PRN (23:50)
[2018-04-21] MEDS: Morphine 2 MG/ML Syringe IVPUSH PRN ×2 (03:42→07:48)
[2018-04-21] MEDS: Sodium Chloride 0.9% 1,000 ML IV SCH ×5 (03:43→13:33)
[2018-04-21 06:05] LABS: CHLORIDE,CL 109 mmol/L (98-107); SODIUM,NA 140 mmol/L (136-148)
[2018-04-21] MEDS: traMADol 50 MG Tab PO PRN ×2 (10:44→16:28)
[2018-04-21] MEDS ORDERED: Morphine 2 MG/ML Syringe IVPUSH PRN (11:56)
--- NOTE | 2018-04-21 11:56 | PCM.PN ---
- General Info Date of Service: 04/21/18 Admission Dx/Problem (Free Text): Admission Diagnosis/Problem Admission Diagnosis/Problem Dehydration Subjective Update: Feeling better today, but feels he needs a little more fluid. No chest pain or SOB. Myalgias improving, but not back to baseline yet. Functional Status: Reports: Pain Controlled, Tolerating Diet, Ambulating, Urinating - Review of Systems General: Reports: Malaise. Denies: Fever, Weakness HEENT: Reports: No Symptoms. Denies: Headaches, Sore Throat, Rhinitis, Visual Changes Pulmonary: Reports: No Symptoms. Denies: Shortness of Breath, Cough, Sputum Cardiovascular: Reports: No Symptoms. Denies: Chest Pain Gastrointestinal: Reports: No Symptoms. Denies: Abdominal Pain, Nausea, Vomiting Genitourinary: Reports: No Symptoms. Denies: Dysuria, Frequency, Burning Musculoskeletal: Reports: No Symptoms Skin: Reports: No Symptoms Neurological: Reports: No Symptoms Psychiatric: Reports: No Symptoms - Patient Data Vitals - Most Recent: Last Vital Signs Temp 97.1 F 04/21/18 08:00 Pulse 58 L 04/21/18 08:00 Resp 16 04/21/18 08:00 BP 108/57 L 04/21/18 08:00 Pulse Ox 96 04/21/18 08:00 Weight - Most Recent: 95.254 kg I&O - Last 24 Hours: Intake & Output 04/20/18 04/21/18 04/21/18 22:59 06:59 14:59 Intake Total 1000 850 Output Total 1000 Balance 1000 -150 Lab Results Last 24 Hours: Laboratory Results - last 24 hr 04/20/18 04/21/18 04/21/18 Range/Units :18 04:58 04:58 WBC 6.08 (4.0-11.0) K/uL RBC 4.10 L (4.50-5.90) M/uL Hgb 13.1 (13.0-17.0) g/dL Hct 37.7 L (38.0-50.0) % MCV 92.0 (80.0-98.0) fL MCH 32.0 (27.0-32.0) pg MCHC 34.7 (31.0-37.0) g/dL RDW Std Deviation 46.2 (28.0-62.0) fl RDW Coeff of Anil 14 (11.0-15.0) % Plt Count 239 (150-400) K/uL MPV 9.80 (7.40-12.00) fL Neut % (Auto) 57.5 (48.0-80.0) % Lymph % (Auto) 32.9 (16.0-40.0) % [place] % (Auto) 6.6 (0.0-15.0) % Eos % (Auto) 2.5 (0.0-7.0) % Baso % (Auto) 0.5 (0.0-1.5) % Neut # (Auto) 3.5 (1.4-5.7) K/uL Lymph # (Auto) 2.0 (0.6-2.4) K/uL [place] # (Auto) 0.4 (0.0-0.8) K/uL Eos # (Auto) 0.2 (0.0-0.7) K/uL Baso # (Auto) 0.0 (0.0-0.1) K/uL Nucleated RBC % 0.0 /100WBC Nucleated RBCs # 0 K/uL Sodium 140 (136-148) mmol/L Potassium 4.4 (3.5-5.1) mmol/L Chloride 109 H (98-107) mmol/L Carbon Dioxide 26.7 (21.0-32.0) mmol/L BUN 12 (7.0-18.0) mg/dL Creatinine 1.1 (0.8-1.3) mg/dL Est Cr Clr Drug Dosing 112.09 mL/min Estimated GFR (MDRD) > 60.0 ml/min Glucose 97 (74-106) mg/dL Calcium 7.8 L (8.5-10.1) mg/dL Total Bilirubin 0.2 (0.2-1.0) mg/dL AST 40 H (15-37) IU/L ALT 44 (14-63) IU/L Alkaline Phosphatase 73 (46-116) U/L Creatine Kinase 1792 H 1142 H (26-308) U/L Total Protein 5.2 L (6.4-8.2) g/dL Albumin 2.8 L (3.4-5.0) g/dL Globulin 2.4 (2.0-3.5) g/dL Albumin/Globulin Ratio 1.2 L (1.3-2.8) Med Orders - Current: Current Medications Cyclobenzaprine HCl (Flexeril) 10 mg PO TID PRN PRN Reason: Muscle Spasm Last Admin: 04/20/18 12:25 Dose: 10 mg Sodium Chloride (Normal Saline) 1,000 mls @ 250 mls/hr IV ASDIRECTED [facility] Last Admin: 04/21/18 07:47 Dose: 250 mls/hr Sodium Chloride (Normal Saline) 1,000 mls @ 999 mls/hr IV ASDIRECTED [facility] Stop: 04/22/18 10:31 Morphine Sulfate (Morphine) 2 mg IVPUSH Q4H PRN PRN Reason: Pain Last Admin: 04/21/18 07:48 Dose: 2 mg Tramadol HCl (Ultram) 50 mg PO Q6H PRN PRN Reason: Pain Last Admin: 04/21/18 10:44 Dose: 50 mg Discontinued Medications Sodium Chloride (Normal Saline) 1,000 mls @ 999 mls/hr IV STAT ONE Stop: 04/19/18 22:56 Last Admin: 04/19/18 22:21 Dose: 999 mls/hr Sodium Chloride (Normal Saline) 1,000 mls @ 999 mls/hr IV STAT ONE Stop: 04/20/18 00:40 Last Admin: 04/19/18 23:45 Dose: 999 mls/hr Sodium Chloride (Normal Saline) 1,000 mls @ 999 mls/hr IV .Bolus ONE Stop: 04/20/18 01:11 Last Admin: 04/20/18 01:05 Dose: 999 mls/hr Sodium Chloride (Normal Saline) 1,000 mls @ 999 mls/hr IV ASDIRECTED [facility] Stop: 04/21/18 09:46 Last Admin: 04/20/18 10:25 Dose: 999 mls/hr Morphine Sulfate (Morphine) 4 mg IVPUSH ONETIME ONE Stop: 04/19/18 22:06 Last Admin: 04/19/18 22:20 Dose: 4 mg Morphine Sulfate (Morphine) Confirm Administered Dose 4 mg .ROUTE .STK-MED ONE Stop: 04/19/18 22:15 Last Admin: 04/19/18 22:24 Dose: Not Given - Exam General: Alert, Oriented, Cooperative, No Acute Distress Lungs: Clear to Auscultation, Normal Respiratory Effort Cardiovascular: Regular Rate, Regular Rhythm Back Exam: Normal Inspection, Full Range of Motion Extremities: Normal Inspection, Normal Range of Motion, Non-Tender, No Pedal Edema, Normal Capillary Refill Neurological: No New Focal Deficit Psy/Mental Status: Alert, Normal Affect, Normal Mood - Problem List & Annotations (1) Rhabdomyolysis SNOMED Code(s): 688256164 Code(s): M62.82 - RHABDOMYOLYSIS Status: Acute Current Visit: Yes Qualifiers: Rhabdomyolysis type: non-traumatic Qualified Code(s): M62.82 - Rhabdomyolysis (2) Dehydration SNOMED Code(s): 24053132 Code(s): E86.0 - DEHYDRATION Status: Acute Current Visit: No (3) Leukocytosis SNOMED Code(s): 074226042, 918593876 Code(s): D72.829 - ELEVATED WHITE BLOOD CELL COUNT, UNSPECIFIED Status: Acute Current Visit: Yes Qualifiers: Leukocytosis type: unspecified Qualified Code(s): D72.829 - Elevated white blood cell count, unspecified (4) TALIB (acute kidney injury) SNOMED Code(s): 23037060 Code(s): N17.9 - ACUTE KIDNEY FAILURE, UNSPECIFIED Status: Acute Current Visit: Yes (5) Unspecified myopathy SNOMED Code(s): 46834402 Code(s): G72.9 - MYOPATHY, UNSPECIFIED Status: Chronic Current Visit: No - Problem List Review Problem List Initiated/Reviewed/Updated: Yes - My Orders Last 24 Hours: My Active Orders 04/21/18 09:30 Sodium Chloride 0.9% [Normal Saline] 1,000 ml IV ASDIRECTED 04/21/18 14:30 CPK [CREATINE KINASE,CK] [CHEM] Routine - Plan Plan:: This 32 year old male admitted with acute dehydration, rhabdomyolysis, TALIB and generalized muscle pain 1. Rhabdomyolysis: Has hx of this due to myopathy of unknown etiology. CPK 1142 will give 2 L NS bolus and then maintain IVFs at 250 ml/hr. Requesting Morphine , but overall feeling improved. Will recheck CPK this afternoon. Possible DC home today. VTE prophylaxis: SCDs and ambulation Dispo: possibly later today or may need 1 day
[2018-04-21] MEDS ORDERED: Sodium Chloride 0.9% 1,000 ML IV SCH (15:45)
--- NOTE | 2018-04-21 16:10 | PCM.DCSUM1 ---
Discharge Summary - Hospital Course Brief History: This 32 year old male with pmh of myopathy of unknown etiology presented last evening with complaints of muscle cramping, dehydration and needing IV fluids. He reports he normally gets rhabdomyolysis 3-4 times a year needing hospitalization and IV fluids along with pain medications. He denies recent trauma, excessive alcohol use. He denies fevers, URI, chest pain or palpitations. No shortness of breath abdominal pain or trouble urinating. He reports he normally gets 4 L of IV fluids fast and IV fluid infusion to decrease his levels. He states Morphine helps best for the pain. he does not take any medication at home for the pain when this happens. His last admission was in February of this year in our facility. In the ED leukcytosis noted at 21, 760, hgb 17.7, lactate 3.4, BUN 20, Cr 1.6 bili 1.2, AST 48, ALT 66, CPK 1035, UA negative, no proteins, 15 ketones. CXR negative. He was given Morphine in the ED along wtih 2 L NS. He was admitted observation for rhabdomyolysis and muscle pain. - Discharge Data Discharge Date: 04/21/18 Discharge Disposition: Home, Self-Care 01 Condition: Stable - Discharge Diagnosis/Problem(s) (1) Rhabdomyolysis SNOMED Code(s): 984162376 ICD Code: M62.82 - RHABDOMYOLYSIS Status: Acute Current Visit: Yes Qualifiers: Rhabdomyolysis type: non-traumatic Qualified Code(s): M62.82 - Rhabdomyolysis (2) Dehydration SNOMED Code(s): 79585915 ICD Code: E86.0 - DEHYDRATION Status: Acute Current Visit: No (3) Leukocytosis SNOMED Code(s): 458867153, 802210651 ICD Code: D72.829 - ELEVATED WHITE BLOOD CELL COUNT, UNSPECIFIED Status: Acute Current Visit: Yes Qualifiers: Leukocytosis type: unspecified Qualified Code(s): D72.829 - Elevated white blood cell count, unspecified (4) TALIB (acute kidney injury) SNOMED Code(s): 99748880 ICD Code: N17.9 - ACUTE KIDNEY FAILURE, UNSPECIFIED Status: Acute Current Visit: Yes (5) Unspecified myopathy SNOMED Code(s): 36090249 ICD Code: G72.9 - MYOPATHY, UNSPECIFIED Status: Chronic Current Visit: No - Patient Instructions Diet: Usual Diet as Tolerated, Drink 8-10+ Glasses/Day Activity: No Strenuous Activities (No work for next couple days, stay out of heat and stay hydrated) Driving: Do Not Drive (No driving today due to receiving narcotics) Showering/Bathing: March Shower Notify Provider of: Fever, Increased Pain, Swelling and Redness, Drainage, Nausea and/or Vomiting - Discharge Plan Home Medications: Home Meds Acetaminophen [Tylenol] 650 mg PO Q4H PRN #60 tab 02/26/18 [Rx] Patient Handouts: Rhabdomyolysis Referrals: Tasia Roberts PA [Physician Morning Babysitter] - 05/05/18 1:00 pm - Discharge Summary/Plan Comment DC Time >30 min.: No Discharge Summary/Plan Comment: Discharge Diagnoses: Rhabdomyolysis Hx myopathy of unknown etiology Joel was admitted and treated with agressive IVF hydration. Given a total of 10 L NS. CPK this afternoon is only down to 1099. patient is feeling much better and is requesting discharge home. He feels back to normal and feels comfortable drinking fluids at home. he was encouraged to stay out of the heat and drink plenty of fluids at home. he would like to explore option of getting standing orders for IVFs when this occurs, he reports his provider in [place] has done this for him to decrease admissions. I will have him follow up with a PCP here to establish care and formulate with plan with that provider. he agrees with this. He will return to the ED or clinic if concerns were to arise again. - General Info Date of Service: 04/21/18 Admission Dx/Problem (Free Text: Admission Diagnosis/Problem Admission Diagnosis/Problem Dehydration Subjective Update: Feeling much better this afternoon. No chest pain or shortness of breath. Muscle pain is near baseline. Voiding clear yellow urine. No other concerns. Requesting discharge home. - Review of Systems Pulmonary: Reports: No Symptoms. Denies: Shortness of Breath Cardiovascular: Reports: No Symptoms. Denies: Chest Pain Gastrointestinal: Reports: No Symptoms. Denies: Abdominal Pain, Nausea, Vomiting Genitourinary: Reports: No Symptoms. Denies: Dysuria, Frequency, Burning Neurological: Reports: No Symptoms Psychiatric: Reports: No Symptoms - Patient Data Vitals - Most Recent: Last Vital Signs Temp 97.0 F 04/21/18 12:00 Pulse 89 04/21/18 12:00 Resp 20 04/21/18 12:00 BP 118/70 04/21/18 12:00 Pulse Ox 92 L 04/21/18 12:00 Weight - Most Recent: 95.254 kg I&O - Last 24 hours: Intake & Output 04/21/18 04/21/18 04/21/18 06:59 14:59 22:59 Intake Total 850 Output Total 1000 Balance -150 Lab Results - Last 24 hrs: Laboratory Results - last 24 hr 04/20/18 04/21/18 04/21/18 Range/Units 15:18 04:58 04:58 WBC 6.08 (4.0-11.0) K/uL RBC 4.10 L (4.50-5.90) M/uL Hgb 13.1 (13.0-17.0) g/dL Hct 37.7 L (38.0-50.0) % MCV 92.0 (80.0-98.0) fL MCH 32.0 (27.0-32.0) pg MCHC 34.7 (31.0-37.0) g/dL RDW Std Deviation 46.2 (28.0-62.0) fl RDW Coeff of Anil 14 (11.0-15.0) % Plt Count 239 (150-400) K/uL MPV 9.80 (7.40-12.00) fL Neut % (Auto) 57.5 (48.0-80.0) % Lymph % (Auto) 32.9 (16.0-40.0) % [place] % (Auto) 6.6 (0.0-15.0) % Eos % (Auto) 2.5 (0.0-7.0) % Baso % (Auto) 0.5 (0.0-1.5) % Neut # (Auto) 3.5 (1.4-5.7) K/uL Lymph # (Auto) 2.0 (0.6-2.4) K/uL [place] # (Auto) 0.4 (0.0-0.8) K/uL Eos # (Auto) 0.2 (0.0-0.7) K/uL Baso # (Auto) 0.0 (0.0-0.1) K/uL Nucleated RBC % 0.0 /100WBC Nucleated RBCs # 0 K/uL Sodium 140 (136-148) mmol/L Potassium 4.4 (3.5-5.1) mmol/L Chloride 109 H (98-107) mmol/L Carbon Dioxide 26.7 (21.0-32.0) mmol/L BUN 12 (7.0-18.0) mg/dL Creatinine 1.1 (0.8-1.3) mg/dL Est Cr Clr Drug Dosing 112.09 mL/min Estimated GFR (MDRD) > 60.0 ml/min Glucose 97 (74-106) mg/dL Calcium 7.8 L (8.5-10.1) mg/dL Total Bilirubin 0.2 (0.2-1.0) mg/dL AST 40 H (15-37) IU/L ALT 44 (14-63) IU/L Alkaline Phosphatase 73 (46-116) U/L Creatine Kinase 1792 H 1142 H (26-308) U/L Total Protein 5.2 L (6.4-8.2) g/dL Albumin 2.8 L (3.4-5.0) g/dL Globulin 2.4 (2.0-3.5) g/dL Albumin/Globulin Ratio 1.2 L (1.3-2.8) 04/21/18 Range/Units 14:35 WBC (4.0-11.0) K/uL RBC (4.50-5.90) M/uL Hgb (13.0-17.0) g/dL Hct (38.0-50.0) % MCV (80.0-98.0) fL MCH (27.0-32.0) pg MCHC (31.0-37.0) g/dL RDW Std Deviation (28.0-62.0) fl RDW Coeff of Anil (11.0-15.0) % Plt Count (150-400) K/uL MPV (7.40-12.00) fL Neut % (Auto) (48.0-80.0) % Lymph % (Auto) (16.0-40.0) % [place] % (Auto) (0.0-15.0) % Eos % (Auto) (0.0-7.0) % Baso % (Auto) (0.0-1.5) % Neut # (Auto) (1.4-5.7) K/uL Lymph # (Auto) (0.6-2.4) K/uL [place] # (Auto) (0.0-0.8) K/uL Eos # (Auto) (0.0-0.7) K/uL Baso # (Auto) (0.0-0.1) K/uL Nucleated RBC % /100WBC Nucleated RBCs # K/uL Sodium (136-148) mmol/L Potassium (3.5-5.1) mmol/L Chloride (98-107) mmol/L Carbon Dioxide (21.0-32.0) mmol/L BUN (7.0-18.0) mg/dL Creatinine (0.8-1.3) mg/dL Est Cr Clr Drug Dosing mL/min Estimated GFR (MDRD) ml/min Glucose (74-106) mg/dL Calcium (8.5-10.1) mg/dL Total Bilirubin (0.2-1.0) mg/dL AST (15-37) IU/L ALT (14-63) IU/L Alkaline Phosphatase (46-116) U/L Creatine Kinase 1099 H (26-308) U/L Total Protein (6.4-8.2) g/dL Albumin (3.4-5.0) g/dL Globulin (2.0-3.5) g/dL Albumin/Globulin Ratio (1.3-2.8) Med Orders - Current: Current Medications Cyclobenzaprine HCl (Flexeril) 10 mg PO TID PRN PRN Reason: Muscle Spasm Last Admin: 04/20/18 12:25 Dose: 10 mg Sodium Chloride (Normal Saline) 1,000 mls @ 250 mls/hr IV ASDIRECTED LORRIE Last Admin: 04/21/18 12:20 Dose: 250 mls/hr Sodium Chloride (Normal Saline) 1,000 mls @ 999 mls/hr IV ASDIRECTED LORRIE Stop: 04/22/18 10:31 Last Admin: 04/21/18 13:33 Dose: 999 mls/hr Sodium Chloride (Normal Saline) 1,000 mls @ 999 mls/hr IV ASDIRECTED LORRIE Stop: 04/22/18 16:46 Morphine Sulfate (Morphine) 2 mg IVPUSH Q2H PRN PRN Reason: Pain Last Admin: 04/21/18 12:22 Dose: 2 mg Tramadol HCl (Ultram) 50 mg PO Q6H PRN PRN Reason: Pain Last Admin: 04/21/18 10:44 Dose: 50 mg Discontinued Medications Sodium Chloride (Normal Saline) 1,000 mls @ 999 mls/hr IV STAT ONE Stop: 04/19/18 22:56 Last Admin: 04/19/18 22:21 Dose: 999 mls/hr Sodium Chloride (Normal Saline) 1,000 mls @ 999 mls/hr IV STAT ONE Stop: 04/20/18 00:40 Last Admin: 04/19/18 23:45 Dose: 999 mls/hr Sodium Chloride (Normal Saline) 1,000 mls @ 999 mls/hr IV .Bolus ONE Stop: 04/20/18 01:11 Last Admin: 04/20/18 01:05 Dose: 999 mls/hr Sodium Chloride (Normal Saline) 1,000 mls @ 999 mls/hr IV ASDIRECTED LORRIE Stop: 04/21/18 09:46 Last Admin: 04/20/18 10:25 Dose: 999 mls/hr Morphine Sulfate (Morphine) 4 mg IVPUSH ONETIME ONE Stop: 04/19/18 22:06 Last Admin: 04/19/18 22:20 Dose: 4 mg Morphine Sulfate (Morphine) Confirm Administered Dose 4 mg .ROUTE .STK-MED ONE Stop: 04/19/18 22:15 Last Admin: 04/19/18 22:24 Dose: Not Given Morphine Sulfate (Morphine) 2 mg IVPUSH Q4H PRN PRN Reason: Pain Last Admin: 04/21/18 07:48 Dose: 2 mg - Exam General: Reports: Alert, Oriented, Cooperative Lungs: Reports: Clear to Auscultation, Normal Respiratory Effort Cardiovascular: Reports: Regular Rate, Regular Rhythm GI/Abdominal Exam: Normal Bowel Sounds, Soft, Non-Tender Back Exam: Reports: Normal Inspection, Full Range of Motion Wound/Incisions: Reports: Healing Well Neurological: Reports: No New Focal Deficit Psy/Mental Status: Reports: Alert, Normal Affect, Normal Mood
== END 2018-04-21 17:30 | disposition home or self-care (01) ==
LOC: MW.ED 21:55 → MW.MS 23:42
PROVIDERS: ADMIT Internal Medicine; ATTEND Internal Medicine
DX: M62.82 Rhabdomyolysis (principal); E86.0 Dehydration; D72.829 Elevated white blood cell count, unspecified; N17.9 Acute kidney failure, unspecified; Z88.2 Allergy status to sulfonamides
CPT/HCPCS: 36415; 71045; 80053; 80305; 81001; 82550; 83605; 85025; 93005; 96361; 96374; 99285; A9270; G0480; J2270; J7040; 96376; 99284; G0378

== ENCOUNTER 2018-04-27 19:29 | Emergency (ER) | payer OTHER ==
[2018-04-27] MEDS ORDERED: Sodium Chloride 0.9% 10 ML Syringe FLUSH PRN (19:51)
[2018-04-27] MEDS ORDERED: Morphine 2 MG/ML Syringe IVPUSH ONE (19:51)
[2018-04-27] MEDS ORDERED: Ondansetron 4 MG/2 ML SDV IVPUSH ONE (19:51)
[2018-04-27] MEDS ORDERED: Sodium Chloride 0.9% 1,000 ML IV ONE ×2 (19:51→20:42)
[2018-04-27] MEDS ORDERED: Sodium Chloride 0.9% 2.5 ML Syringe FLUSH PRN (19:51)
--- NOTE | 2018-04-27 19:54 | EDM.PDOC ---
ED HPI GENERAL MEDICAL PROBLEM - General Chief Complaint: General Stated Complaint: spasms all over Time Seen by Provider: 04/27/18 19:51 Source of Information: Reports: Patient - History of Present Illness INITIAL COMMENTS - FREE TEXT/NARRATIVE: HISTORY AND PHYSICAL: 32-year-old gentleman presenting with cramping all over of his muscles History of Present Illness: []admission has history of unknown cause of rhabdomyolysis which occurs 3-4 times a year patient was just discharged from this hospital 3 days ago with rhabdomyolysis he has obviously gone back to work and symptoms returned today Review of Systems: As per history of present illness and below otherwise all systems reviewed and negative. Past medical history: As per history of present illness and as reviewed below otherwise noncontributory. Surgical history: As per history of present illness and as reviewed below otherwise noncontributory. Social history: No reported history of drug or alcohol abuse. Family history: As per history of present illness and as reviewed below otherwise noncontributory. Physical exam: alert and oriented gentleman acting age-appropriate is answering questions in full sentences without any shortness of breath. He is nontoxic in appearance. HEENT: Atraumatic, normocehpalic, pupils reactive, negative for conjunctival pallor or scleral icterus, mucous membranes moist, throat clear, neck supple, nontender, trachea midline. Lungs: Clear to auscultation, breath sounds equal bilaterally, chest non tender. Heart: S1S2, regular, negative for clicks, rubs, or JVD. Abdomen: Soft, nondistended, nontender. Negative for masses or hepatossplenmegaly. Negative for costovertebral tenderness. Pelvis: Stable nontender. Genitourinary: Deferred. Rectal: Deferred Extremities: Atraumatic, negative for cords or calf pain. Neurovascular unremarkable. Neuro: Awake, alert, oriented. Cranial nerves II through XII. generalized spastic movements through his body that are unremarkable. Cerebellum unremarkable. Motor and sensory unremarkable throughout. Exam nonfocal. last CK was 2711 Diagnostics: []cbc cmp UA Therapeutics: []NS Morphine Zofran Impression: []rhabdomyolysis dehydration Plan: []discharge home Use Gatorade or similar product to hydrate during the day push water return if symptoms worsen Definitive disposition and diagnosis as appropriate pending reevaluation and review of above. body Pain Score (Numeric/FACES): 9 - Related Data Allergies Allergy/AdvReac Type Severity Reaction Status Date / Time cefaclor [From Ceclor] Allergy Hives Verified 04/27/18 19:49 Home Meds: Home Meds . [No Known Home Meds] 04/27/18 [History] Past Medical History HEENT History: Reports: None Cardiovascular History: Reports: None Respiratory History: Reports: None Gastrointestinal History: Reports: None Genitourinary History: Reports: None Musculoskeletal History: Reports: Other (See Below) Other Musculoskeletal History: muscle myopathy Neurological History: Reports: None Psychiatric History: Reports: None Endocrine/Metabolic History: Reports: None Hematologic History: Reports: None Immunologic History: Reports: None Oncologic (Cancer) History: Reports: None Dermatologic History: Reports: None - Infectious Disease History Infectious Disease History: Reports: None - Past Surgical History Head Surgeries/Procedures: Reports: None HEENT Surgical History: Reports: Oral Surgery Musculoskeletal Surgical History: Reports: Shoulder Surgery Social & Family History - Family History Family Medical History: Noncontributory - Tobacco Use Smoking Status *Q: Never Smoker - Caffeine Use Caffeine Use: Reports: Coffee, Soda - Recreational Drug Use Recreational Drug Use: No - Living Situation & Occupation Living situation: Reports: Occupation: Employed ED ROS GENERAL - Review of Systems Review Of Systems: ROS reveals no pertinent complaints other than HPI. ED EXAM, GENERAL - Physical Exam Exam: See Below (see dictation) Course - Vital Signs Last Recorded V/S: Last Vital Signs Temp 36.1 C 04/27/18 19:29 Pulse 137 H 04/27/18 19:29 Resp 18 04/27/18 19:29 BP 144/83 H 04/27/18 19:29 Pulse Ox 96 04/27/18 19:29 - Orders/Labs/Meds Orders: Active Orders 24 hr Category Date Time Status Sodium Chloride 0.9% [Saline Flush] Med 04/27/18 19:51 Active 10 ml FLUSH ASDIRECTED PRN Sodium Chloride 0.9% [Saline Flush] Med 04/27/18 19:51 Active 2.5 ml FLUSH ASDIRECTED PRN Saline Lock Insert [OM.PC] Stat Oth 04/27/18 19:50 Ordered Medication Orders Sodium Chloride (Saline Flush) 10 ml FLUSH ASDIRECTED PRN PRN Reason: Keep Vein Open Sodium Chloride (Saline Flush) 2.5 ml FLUSH ASDIRECTED PRN PRN Reason: Keep Vein Open Labs: Laboratory Tests 04/27/18 04/27/18 Range/Units 19:53 19:53 WBC 11.26 H (4.0-11.0) K/uL RBC 5.07 (4.50-5.90) M/uL Hgb 16.5 (13.0-17.0) g/dL Hct 44.1 (38.0-50.0) % MCV 87.0 (80.0-98.0) fL MCH 32.5 H (27.0-32.0) pg MCHC 37.4 H (31.0-37.0) g/dL RDW Std Deviation 42.1 (28.0-62.0) fl RDW Coeff of Anil 13 (11.0-15.0) % Plt Count 403 H (150-400) K/uL MPV 9.70 (7.40-12.00) fL Neut % (Auto) 64.1 (48.0-80.0) % Lymph % (Auto) 24.3 (16.0-40.0) % [place] % (Auto) 10.5 (0.0-15.0) % Eos % (Auto) 0.6 (0.0-7.0) % Baso % (Auto) 0.5 (0.0-1.5) % Neut # (Auto) 7.2 H (1.4-5.7) K/uL Lymph # (Auto) 2.7 H (0.6-2.4) K/uL [place] # (Auto) 1.2 H (0.0-0.8) K/uL Eos # (Auto) 0.1 (0.0-0.7) K/uL Baso # (Auto) 0.1 (0.0-0.1) K/uL Nucleated RBC % 0.0 /100WBC Nucleated RBCs # 0 K/uL Sodium 136 (136-148) mmol/L Potassium 3.7 (3.5-5.1) mmol/L Chloride 98 (98-107) mmol/L Carbon Dioxide 25.4 (21.0-32.0) mmol/L BUN 24 H (7.0-18.0) mg/dL Creatinine 1.6 H (0.8-1.3) mg/dL Est Cr Clr Drug Dosing 77.06 mL/min Estimated GFR (MDRD) 50.3 ml/min Glucose 103 (74-106) mg/dL Calcium 9.9 (8.5-10.1) mg/dL Total Bilirubin 0.7 (0.2-1.0) mg/dL AST 42 H (15-37) IU/L ALT 57 (14-63) IU/L Alkaline Phosphatase 85 (46-116) U/L Creatine Kinase 1095 H (26-308) U/L Total Protein 8.2 (6.4-8.2) g/dL Albumin 4.8 (3.4-5.0) g/dL Globulin 3.4 (2.0-3.5) g/dL Albumin/Globulin Ratio 1.4 (1.3-2.8) Meds: Medications Generic Name Dose Route Start Last Admin Trade Name Freq PRN Reason Stop Dose Admin Sodium Chloride 10 ml 04/27/18 19:51 Saline Flush FLUSH ASDIRECTED PRN Keep Vein Open Sodium Chloride 2.5 ml 04/27/18 19:51 Saline Flush FLUSH ASDIRECTED PRN Keep Vein Open Discontinued Medications Generic Name Dose Route Start Last Admin Trade Name Freq PRN Reason Stop Dose Admin Sodium Chloride 1,000 mls @ 999 mls/hr 04/27/18 19:51 04/27/18 21:00 Normal Saline IV 04/27/18 20:51 999 mls/hr STAT ONE Administration Sodium Chloride 1,000 mls @ 999 mls/hr 04/27/18 20:42 04/27/18 21:46 Normal Saline IV 04/27/18 21:42 999 mls/hr STAT ONE Administration Morphine Sulfate 2 mg 04/27/18 19:51 04/27/18 20:59 Morphine IVPUSH 04/27/18 19:52 2 mg ONETIME ONE Administration Ondansetron HCl 4 mg 04/27/18 19:51 04/27/18 21:00 Zofran IVPUSH 04/27/18 19:52 4 mg ONETIME ONE Administration Departure - Departure Time of Disposition: 22:02 Disposition: Home, Self-Care 01 Condition: Good Clinical Impression: Dehydration Rhabdomyolysis Qualifiers: Rhabdomyolysis type: non-traumatic Qualified Code(s): M62.82 - Rhabdomyolysis - Discharge Information Referrals: PCP,None [Primary Care Provider] - Forms: ED Department Discharge Additional Instructions: The following information is given to patients seen in the emergency department who are being discharged to home. This information is to outline your options for follow-up care. We provide all patients seen in our emergency department with a follow-up referral. The need for follow-up, as well as the timing and circumstances, are variable depending upon the specifics of your emergency department visit. If you don't have a primary care physician on staff, we will provide you with a referral. We always advise you to contact your personal physician following an emergency department visit to inform them of the circumstance of the visit and for follow-up with them and/or the need for any referrals to a consulting specialist. The emergency department will also refer you to a specialist when appropriate. This referral assures that you have the opportunity for followup care with a specialist. All of these measure are taken in an effort to provide you with optimal care, which includes your followup. Under all circumstances we always encourage you to contact your private physician who remains a resource for coordinating your care. When calling for followup care, please make the office aware that this follow-up is from your recent emergency room visit. If for any reason you are refused follow-up, please contact the [facility] emergency department at and asked to speak to the emergency department charge nurse. you're dehydrated on entering ER Continue to drink water however would recommend that you have Gatorade or similar product during the day to maintain your electrolytes worsening of symptoms he'll need to return for reevaluation and possible admission to the hospital - My Orders Last 24 Hours: My Active Orders 04/27/18 19:50 Saline Lock Insert [OM.PC] Stat 04/27/18 19:51 Sodium Chloride 0.9% [Saline Flush] 10 ml FLUSH ASDIRECTED PRN Sodium Chloride 0.9% [Saline Flush] 2.5 ml FLUSH ASDIRECTED PRN - Assessment/Plan Last 24 Hours: My Active Orders 04/27/18 19:50 Saline Lock Insert [OM.PC] Stat 04/27/18 19:51 Sodium Chloride 0.9% [Saline Flush] 10 ml FLUSH ASDIRECTED PRN Sodium Chloride 0.9% [Saline Flush] 2.5 ml FLUSH ASDIRECTED PRN
== END 2018-04-27 22:25 | disposition home or self-care (01) ==
LOC: MW.ED 19:29
DX: E86.0 Dehydration (principal); M62.82 Rhabdomyolysis; Z88.1 Allergy status to other antibiotic agents
CPT/HCPCS: 36415; 80053; 82550; 85025; 96361; 96374; 96375; 99284; J2270; J2405; J7040; 99283

== ENCOUNTER 2018-06-17 18:14 | Emergency (ER) | payer SELFPAY ==
[2018-06-17] MEDS ORDERED: Sodium Chloride 0.9% 1,000 ML IV ONE ×2 (18:51→19:40)
--- NOTE | 2018-06-17 18:51 | EDM.PDOC ---
ED HPI GENERAL MEDICAL PROBLEM - General Chief Complaint: General Stated Complaint: PT SPOKE TO NURSE Time Seen by Provider: 06/17/18 18:47 Source of Information: Reports: Patient History Limitations: Reports: No Limitations - History of Present Illness INITIAL COMMENTS - FREE TEXT/NARRATIVE: HISTORY AND PHYSICAL: History of present illness: 32-year-old male presenting to emergency department chief complaint of muscle spasms with past medical history of myopathy of unknown etiology. Patient states that it's he has a history of rhabdomyolysis and when he gets dehydrated he has to come into the hospital to get fluids. His myopathy is of unknown etiology and states that he just gets cramps when he gets dehydrated. Currently denies any chest pain, palpitations, shortness of breath, syncopal episodes, or focal neurologic deficits. He has been hospitalized for this previously here. Review of systems: As per history of present illness and below otherwise all systems reviewed and negative. Past medical history: As per history of present illness and as reviewed below otherwise noncontributory. Surgical history: As per history of present illness and as reviewed below otherwise noncontributory. Social history: No reported history of drug or alcohol abuse. Family history: As per history of present illness and as reviewed below otherwise noncontributory. Physical exam: HEENT: Atraumatic, normocephalic, pupils reactive, negative for conjunctival pallor or scleral icterus, mucous membranes moist, throat clear, neck supple, nontender, trachea midline. Lungs: Clear to auscultation, breath sounds equal bilaterally, chest nontender. Heart: S1S2, regular, negative for clicks, rubs, or JVD. Abdomen: Soft, nondistended, nontender. Negative for masses or hepatosplenomegaly. Negative for costovertebral tenderness. Pelvis: Stable nontender. Genitourinary: Deferred. Rectal: Deferred. Extremities: Atraumatic, negative for cords or calf pain. Neurovascular unremarkable. Neuro: Awake, alert, oriented. Cranial nerves II through XII unremarkable. Cerebellum unremarkable. Motor and sensory unremarkable throughout. Exam nonfocal. Diagnostics: CBC, CMP, CPK Therapeutics: 1 L normal saline Impression: Myopathy Plan: Did discuss at length about possibly staying overnight however patient would rather not be admitted. He states that he is going to follow-up tomorrow and get his CK checked again. Definitive disposition and diagnosis as appropriate pending reevaluation and review of above. Generalized Pain Score (Numeric/FACES): 9 - Related Data Allergies Allergy/AdvReac Type Severity Reaction Status Date / Time cefaclor [From Ceclor] Allergy Hives Verified 06/17/18 18:42 Home Meds: Home Meds . [No Known Home Meds] 04/27/18 [History] Past Medical History HEENT History: Reports: None Cardiovascular History: Reports: None Respiratory History: Reports: None Gastrointestinal History: Reports: None Genitourinary History: Reports: None Musculoskeletal History: Reports: Other (See Below) Other Musculoskeletal History: muscle myopathy Neurological History: Reports: None Psychiatric History: Reports: None Endocrine/Metabolic History: Reports: None Hematologic History: Reports: None Immunologic History: Reports: None Oncologic (Cancer) History: Reports: None Dermatologic History: Reports: None - Infectious Disease History Infectious Disease History: Reports: Chicken Pox - Past Surgical History Head Surgeries/Procedures: Reports: None HEENT Surgical History: Reports: Oral Surgery Musculoskeletal Surgical History: Reports: Shoulder Surgery Social & Family History - Family History Family Medical History: Noncontributory - Tobacco Use Packs/Tins Daily: 0.2 - Caffeine Use Caffeine Use: Reports: Coffee, Energy Drinks, Soda, Tea - Recreational Drug Use Recreational Drug Use: No - Living Situation & Occupation Living situation: Reports: Occupation: Employed ED ROS GENERAL - Review of Systems Review Of Systems: ROS reveals no pertinent complaints other than HPI. ED EXAM, GENERAL - Physical Exam Exam: See Below Course - Vital Signs Last Recorded V/S: Last Vital Signs Temp 98.1 F 06/17/18 18:40 Pulse 105 H 06/17/18 18:40 Resp 12 06/17/18 18:40 BP 118/69 06/17/18 18:40 Pulse Ox 96 06/17/18 18:40 - Orders/Labs/Meds Orders: Active Orders 24 hr Category Date Time Status UA W/MICROSCOPIC [URIN] Stat Lab 06/17/18 19:40 Ordered Sodium Chloride 0.9% [Normal Saline] 1,000 ml Med 06/17/18 19:40 Active IV STAT Medication Orders Sodium Chloride (Normal Saline) 1,000 mls @ 999 mls/hr IV STAT ONE Stop: 06/17/18 20:40 Last Admin: 06/17/18 19:59 Dose: 999 mls/hr Labs: Laboratory Tests 06/17/18 06/17/18 Range/Units 19:00 19:00 WBC 7.41 (4.0-11.0) K/uL RBC 5.00 (4.50-5.90) M/uL Hgb 16.0 (13.0-17.0) g/dL Hct 43.8 (38.0-50.0) % MCV 87.6 (80.0-98.0) fL MCH 32.0 (27.0-32.0) pg MCHC 36.5 (31.0-37.0) g/dL RDW Std Deviation 40.3 (28.0-62.0) fl RDW Coeff of Anil 13 (11.0-15.0) % Plt Count 303 (150-400) K/uL MPV 9.90 (7.40-12.00) fL Neut % (Auto) 62.9 (48.0-80.0) % Lymph % (Auto) 27.8 (16.0-40.0) % [place] % (Auto) 7.7 (0.0-15.0) % Eos % (Auto) 1.2 (0.0-7.0) % Baso % (Auto) 0.4 (0.0-1.5) % Neut # (Auto) 4.7 (1.4-5.7) K/uL Lymph # (Auto) 2.1 (0.6-2.4) K/uL [place] # (Auto) 0.6 (0.0-0.8) K/uL Eos # (Auto) 0.1 (0.0-0.7) K/uL Baso # (Auto) 0.0 (0.0-0.1) K/uL Nucleated RBC % 0.0 /100WBC Nucleated RBCs # 0 K/uL Sodium 139 (136-148) mmol/L Potassium 3.7 (3.5-5.1) mmol/L Chloride 102 (98-107) mmol/L Carbon Dioxide 24.3 (21.0-32.0) mmol/L BUN 18 (7.0-18.0) mg/dL Creatinine 1.3 (0.8-1.3) mg/dL Est Cr Clr Drug Dosing 94.85 mL/min Estimated GFR (MDRD) > 60.0 ml/min Glucose 109 H (74-106) mg/dL Calcium 9.4 (8.5-10.1) mg/dL Total Bilirubin 0.7 (0.2-1.0) mg/dL AST 55 H (15-37) IU/L ALT 62 (14-63) IU/L Alkaline Phosphatase 67 (46-116) U/L Creatine Kinase 2140 H (26-308) U/L Total Protein 7.6 (6.4-8.2) g/dL Albumin 4.5 (3.4-5.0) g/dL Globulin 3.1 (2.0-3.5) g/dL Albumin/Globulin Ratio 1.5 (1.3-2.8) Meds: Medications Generic Name Dose Route Start Last Admin Trade Name Freq PRN Reason Stop Dose Admin Sodium Chloride 1,000 mls @ 999 mls/hr 06/17/18 19:40 06/17/18 19:59 Normal Saline IV 06/17/18 20:40 999 mls/hr STAT ONE Administration Discontinued Medications Generic Name Dose Route Start Last Admin Trade Name Freq PRN Reason Stop Dose Admin Sodium Chloride 1,000 mls @ 999 mls/hr 06/17/18 18:51 06/17/18 19:08 Normal Saline IV 06/17/18 19:51 999 mls/hr STAT ONE Administration Departure - Departure Time of Disposition: 20:40 Disposition: Home, Self-Care 01 Condition: Good Clinical Impression: Rhabdomyolysis Qualifiers: Rhabdomyolysis type: non-traumatic Qualified Code(s): M62.82 - Rhabdomyolysis - Discharge Information Referrals: PCP,None [Primary Care Provider] - Forms: ED Department Discharge Additional Instructions: My general discharge The following information is given to patients seen in the emergency department who are being discharged to home. This information is to outline your options for follow-up care. We provide all patients seen in our emergency department with a follow-up referral. The need for follow-up, as well as the timing and circumstances, are variable depending upon the specifics of your emergency department visit. If you don't have a primary care physician on staff, we will provide you with a referral. We always advise you to contact your personal physician following an emergency department visit to inform them of the circumstance of the visit and for follow-up with them and/or the need for any referrals to a consulting specialist. The emergency department will also refer you to a specialist when appropriate. This referral assures that you have the opportunity for follow-up care with a specialist. All of these measure are taken in an effort to provide you with optimal care, which includes your follow-up. Under all circumstances we always encourage you to contact your private physician who remains a resource for coordinating your care. When calling for follow-up care, please make the office aware that this follow-up is from your recent emergency room visit. If for any reason you are refused follow-up, please contact the [facility] Emergency Department at and asked to speak to the emergency department charge nurse. Follow-up with primary care provider. Return to emergency department if any new or worsening symptoms. - My Orders Last 24 Hours: My Active Orders 06/17/18 19:40 UA W/MICROSCOPIC [URIN] Stat Sodium Chloride 0.9% [Normal Saline] 1,000 ml IV STAT - Assessment/Plan Last 24 Hours: My Active Orders 06/17/18 19:40 UA W/MICROSCOPIC [URIN] Stat Sodium Chloride 0.9% [Normal Saline] 1,000 ml IV STAT
[2018-06-17 19:50] LABS: CHLORIDE,CL 102 mmol/L (98-107); SODIUM,NA 139 mmol/L (136-148)
== END 2018-06-17 20:48 | disposition home or self-care (01) ==
LOC: MW.ED 18:14
DX: M62.82 Rhabdomyolysis (principal); Z88.1 Allergy status to other antibiotic agents
CPT/HCPCS: 36415; 80053; 82550; 85025; 96360; 96361; 99284; J7040; 99283